=== PATIENT | female | born 1940 | race Two or more races ===

== ENCOUNTER 2016-10-09 13:39 | Outpatient (CLI) | payer MEDICARE, MEDICAID ==
--- NOTE | 2016-10-09 16:44 | XRAY Report ---
TWO-VIEW CHEST: 10/09/2016 CLINICAL INDICATION: Left chest pain. COMPARISON: 12/12/2015 FINDINGS: Frontal and lateral views of the chest demonstrate a normal cardiac silhouette. The lungs are clear. No effusion or pneumothorax is present. IMPRESSION: NO EVIDENCE OF ACUTE CARDIOPULMONARY DISEASE. JOB #: [id number] EXT JOB #:[id number]
== END 2016-10-09 13:40 | disposition home or self-care (01) ==
LOC: DI.N 13:39
PROVIDERS: ATTEND Family Medicine
DX: R07.81 Pleurodynia (principal)
CPT/HCPCS: 71020

== ENCOUNTER 2017-01-06 14:43 | Outpatient (CLI) | payer MEDICARE, MEDICAID ==
[2017-01-06 19:35] LABS: CALCIUM 9.1 mg/dL (8.5-10.3); CREATININE 0.8 mg/dL (0.4-1.0); POTASSIUM 3.9 mmol/L (3.5-5.0)
== END 2017-01-06 14:44 ==
LOC: LAB.N 14:43
PROVIDERS: ATTEND Family Medicine
DX: I10 Essential (primary) hypertension (principal)
CPT/HCPCS: 36415; 80048

== ENCOUNTER 2017-05-08 10:46 | Emergency (ER) | payer MEDICARE, MEDICAID ==
--- NOTE | 2017-05-08 12:33 | XRAY Preliminary Report ---
Exam: XR CHEST 2 VIEW PA/LAT IMPRESSION: Unremarkable chest for age and body size, stable. No pneumonia, CHF or other demonstrated cause for cough. [facility] SITE ID: [id number]
--- NOTE | 2017-05-08 12:36 | XRAY Report ---
EXAM: CHEST RADIOGRAPHY, 2 VIEWS EXAM DATE: 05/08/2017 11:54 AM. CLINICAL HISTORY: Cough in a 76-year-old female. COMPARISON: 10/09/2016 and previous. TECHNIQUE: Upright PA and lateral views. FINDINGS: Lungs/Pleura: No focal opacities evident. No pleural effusion. No pneumothorax. Normal volumes. Mediastinum: Heart and mediastinal contours are unremarkable. No pulmonary vascular congestion or macho nopathy. Other: Trachea and osseous structures are unremarkable. IMPRESSION: Unremarkable chest for age and body size, stable. No pneumonia, CHF or other demonstrated cause for cough. [facility] Referring Provider Line: [phone] SITE ID: [id number]
[2017-05-08] MEDS ORDERED: DEXAMETHASONE 10 MG/ML VIAL PO STA (13:18)
--- NOTE | 2017-05-08 13:20 | ED Physician Documentation ---
PD HPI URI - Stated complaint Stated Complaint: THROAT PX - Chief complaint Chief Complaint: Resp - History obtained from History obtained from: Patient, Family - History of Present Illness Timing - onset: How many weeks ago (2) Timing duration: Weeks (2) Timing details: Gradual onset, Still present Associated symptoms: Nasal congestion, Rhinorrhea, Sore throat, Productive cough , Dyspnea Contributing factors: Sick contact Improves by: Rest, Medication, MDI/nebulizer Worsened by: Activity, Breathing Similar symptoms before: Diagnosis (asthma and bronchitis) Recently seen: Not recently seen - Additional information Additional information: 68-year-old female with a history of COPD and yearly exacerbations has developed a cough and congestion sore throat loss of voice and production of brown phlegm. She last took a course of prednisone about 1 year ago. She is using a nebulizer at home and use this nebulizer last night and is not currently short of breath. On a good day she does not use her nebulizer at all and she uses an inhaler twice per day. 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 HEENT: Cataracts - Present Medications Home Medications: Ambulatory Orders Medication Instructions Recorded Confirmed Acetaminophen [Tylenol Extra 500 mg PO PRN 02/15/13 02/15/13 Strength] Calcitonin,[place],Synthetic 1 ml NS DAILY 02/15/13 02/15/13 [Calcitonin-[place]] Calcium Carbonate [Calcium] 600 mg PO DAILY 02/15/13 02/15/13 Losartan Potassium [Cozaar] 50 mg PO DAILY 02/15/13 02/15/13 Pravastatin Sodium 20 mg PO DAILY 02/15/13 02/15/13 Albuterol 2.5 mg INH Q4H PRN #30 neb 06/19/15 raNITIdine [Zantac] 12/12/15 Azithromycin [Zithromax] 250 mg PO DAILY #6 tablet 05/08/17 Benzonatate [Tessalon] 100 - 200 mg PO TID PRN #20 capsule 05/08/17 Fluticasone 44 Mcg [Flovent] 1 puffs INH BID 05/08/17 05/08/17 predniSONE [Deltasone] 10 mg PO DAILY #26 tablet 05/08/17 - Allergies Allergies/Adverse Reactions: Allergies Allergy/AdvReac Type Severity Reaction Status Date / Time calcium [Calcium] Allergy Unknown Edema Verified 05/08/17 10:57 Penicillins Allergy Unknown Respiratory Verified 05/08/17 10:57 lisinopril AdvReac Unknown Respiratory Verified 05/08/17 10:57 amenophyllina Allergy Unknown Uncoded 05/08/17 10:57 - Social History Does the pt smoke?: No Smoking Status: Never smoker Does the pt drink ETOH?: No Does the pt have substance abuse?: No - Immunizations Immunizations are current?: No Immunizations: TDAP >10years/unknown - POLST Patient has POLST: No PD ED PE NORMAL - Vitals Vital signs reviewed: Yes (hypertensive) - General General: Alert and oriented X 3, No acute distress, Well developed/nourished - HEENT HEENT: Atraumatic, PERRL, EOMI, Other (rim of inflamation to the left TM the right is clear. The pharynx is inflamed with swelling and exudate mild ) - Neck Neck: Supple, no meningeal sign, No bony TTP - Cardiac Cardiac: RRR, No murmur - Respiratory Respiratory: No respiratory distress, Clear bilaterally - Abdomen Abdomen: Soft, Non tender - Back Back: No CVA TTP, No spinal TTP - Derm Derm: Normal color, Warm and dry, No rash - Extremities Extremities: No deformity, No edema - Neuro Neuro: No motor deficit, No sensory deficit Eye Opening: Spontaneous Motor: Obeys Commands Verbal: Oriented GCS Score: 15 - Psych Psych: Normal mood, Normal affect Results - Vitals Vitals: Vital Signs - 24 hr 05/08/17 05/08/17 10:54 13:28 Temperature 36.4 C L Heart Rate 74 75 Respiratory 20 18 Rate Blood Pressure 146/66 H 158/65 H O2 Saturation 97 97 Oxygen O2 Source Room air - Labs Labs: Laboratory Tests 05/08/17 13:10 Group A Strep Rapid Negative - Rads (name of study) 2 veiw chest Radiology: Prelim report reviewed (Impression: Unremarkable chest for age and body size, stable. No pneumonia, CHF or other demonstrate a cause for cough.), EMP read indepedently, See rad report PD MEDICAL DECISION MAKING - ED course Complexity details: reviewed old records, reviewed results, re-evaluated patient , considered differential, d/w patient, d/w family ED course: 76-year-old female with history of COPD has another exacerbation this year she is coughing up some brown phlegm. Chest x-ray is clear she is given dexamethasone 10 mg here in the emergency department and we will place her on a course of prednisone and azithromycin. Departure - Departure Disposition: Home, Self Care Clinical Impression: Asthmatic bronchitis with acute exacerbation Qualifiers: Asthma severity: mild Asthma persistence: intermittent Qualified Code(s): J45.21 - Mild intermittent asthma with (acute) exacerbation Condition: Stable Instructions: ED Bronchitis Asthmatic Follow-Up: Jeremy Maya MD [Primary Care Provider] - Prescriptions: Azithromycin [Zithromax] 250 mg PO DAILY #6 tablet Benzonatate [Tessalon] 100 - 200 mg PO TID PRN #20 capsule PRN Reason: Cough predniSONE [Deltasone] 10 mg PO DAILY #26 tablet
[2017-05-08 13:26] LABS: RAPID STREP SCREEN REAGENT QC YELLOW (YELLOW)
[2017-05-08 13:30] VITALS: BP 158/65
[2017-05-08] MEDS ORDERED: CHERRY SYRUP 10 ML UDC PO ONE (13:30)
[2017-05-08] MEDS ORDERED: DEXAMETHASONE 10 MG/ML VIAL ONE (13:30)
== END 2017-05-08 13:45 | disposition home or self-care (01) ==
LOC: ED 10:46
DX: J45.21 Mild intermittent asthma with (acute) exacerbation (principal); J44.9 Chronic obstructive pulmonary disease, unspecified; I10 Essential (primary) hypertension; E78.00 Pure hypercholesterolemia, unspecified; K21.9 Gastro-esophageal reflux disease without esophagitis; M19.90 Unspecified osteoarthritis, unspecified site
CPT/HCPCS: 71020; 87070; 87430; 99283; A9270

== ENCOUNTER 2017-07-12 22:14 | Outpatient (CLI) | payer MEDICARE, MEDICAID | END 2017-07-12 22:15 | disposition EMS.NT | LOC: EMS 22:14 | PROVIDERS: ATTEND Surgery | DX: R06.00 Dyspnea, unspecified (principal); R05 Cough ==

== ENCOUNTER 2017-08-01 16:33 | Emergency (ER) | payer MEDICARE, MEDICAID ==
[2017-08-01] MEDS ORDERED: KETOROLAC 60 MG/2 ML VIAL IVP STA (18:17)
--- NOTE | 2017-08-01 18:17 | ED Physician Documentation ---
History of Present Illness - Stated complaint Stated Complaint: BUTTOCK PX - Chief complaint Chief Complaint: General - History obtained from History obtained from: Patient, Family - History of Present Illness Timing: Today Pain level max: 8 Pain level now: 8 Quality: sharp, shooting pain Improved by: nothing Worsened by: standing, sitting - Additonal information Additional information: Patient is a 76-year-old female who presents to the emergency department with bilateral pain that radiates from the buttocks down the posterior aspect of both legs. Has had similar episodes in the past with her sciatica. Took an old dose of methocarbamol, but did not relieve her pain. no numbness, tingling, loss of bowel or bladder function. no trauma. no fevers. Review of Systems Constitutional: denies: Fever, Chills Nose: denies: Rhinorrhea / runny nose, Congestion Throat: denies: Sore throat Respiratory: denies: Cough GI: denies: Abdominal Pain, Vomiting, Diarrhea Skin: denies: Rash Musculoskeletal: denies: Neck pain, Back pain Neurologic: denies: Focal weakness, Numbness, Headache 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, 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 HEENT: Cataracts - Present Medications Home Medications: Ambulatory Orders Medication Instructions Recorded Confirmed Acetaminophen [Tylenol Extra 500 mg PO DAILY 02/15/13 08/01/17 Strength] Calcium Carbonate [Calcium] 600 mg PO DAILY 02/15/13 08/01/17 Losartan Potassium [Cozaar] 50 mg PO DAILY 02/15/13 08/01/17 Pravastatin Sodium 20 mg PO DAILY 02/15/13 08/01/17 Albuterol 2.5 mg INH Q4H PRN #30 neb 06/19/15 08/01/17 raNITIdine [Zantac] 75 mg PO DAILY 12/12/15 08/01/17 Fluticasone 44 Mcg [Flovent] 1 puffs INH BID 05/08/17 08/01/17 Meloxicam [Mobic] 7.5 mg PO BID PRN #20 tablet 08/01/17 - Allergies Allergies/Adverse Reactions: Allergies Allergy/AdvReac Type Severity Reaction Status Date / Time calcium [Calcium] Allergy Unknown Edema Verified 08/01/17 17:41 Penicillins Allergy Unknown Respiratory Verified 08/01/17 17:41 lisinopril AdvReac Unknown Respiratory Verified 08/01/17 17:41 amenophyllina Allergy Unknown Uncoded 08/01/17 16:44 - Social History Does the pt smoke?: No Smoking Status: Never smoker Does the pt drink ETOH?: No Does the pt have substance abuse?: No - Immunizations Immunizations are current?: No Immunizations: TDAP >10years/unknown - POLST Patient has POLST: No PD ED PE NORMAL - Vitals Vital signs reviewed: Yes - General General: Alert and oriented X 3, No acute distress - HEENT HEENT: Moist mucous membranes - Neck Neck: Supple, no meningeal sign - Cardiac Cardiac: RRR, Strong equal pulses - Respiratory Respiratory: No respiratory distress, Clear bilaterally - Abdomen Abdomen: Soft, Non tender, Non distended - Back Back: No spinal TTP, Other (no step off, no deformity. No midline tenderness to palpation or percussion. There is sensitivity and discomfort when palpating over the bilateral sacroiliac joints.) - Derm Derm: Warm and dry - Extremities Extremities: Normal ROM s pain, Other (normal bilateral lower extremity patellar and ankle jerk reflexes. Normal great toe extension bilaterally. Normal gait) - Neuro Neuro: Alert and oriented X 3, No motor deficit, No sensory deficit - Psych Psych: Normal mood, Normal affect Results - Vitals Vitals: Vital Signs - 24 hr 08/01/17 19:04 Temperature 36.7 C Heart Rate 89 Respiratory 20 Rate Blood Pressure 162/72 H O2 Saturation 98 Oxygen O2 Source Room air PD MEDICAL DECISION MAKING - ED course Complexity details: considered differential (no cauda equina, no spinal epidural abscess, no fracture, no aortic dissection or evidence of aneursym rupture), d/w patient, d/w family ED course: Patient is a 76-year-old female who presents to the emergency department with what sounds like sciatica. No evidence of cauda equina, epidural abscess. No evidence of fracture. Ambulating quite well. Will trial on meloxicam for home and follow-up closely with her doctor. Patient and family counseled regarding signs and symptoms for which I believe and urgent re-evaluation would be necessary. Patient with good understanding of and agreement to plan and is comfortable going home at this time This document was made in part using voice recognition software. While efforts are made to proofread this document, sound alike and grammatical errors may occur. Departure - Departure Disposition: 01 Home, Self Care Clinical Impression: Sciatica Qualifiers: Laterality: bilateral Qualified Code(s): M54.31 - Sciatica, right side Condition: Good Instructions: ED Sciatica Follow-Up: Jeremy Maya MD [Primary Care Provider] - Within 1 week Prescriptions: Meloxicam [Mobic] 7.5 mg PO BID PRN #20 tablet PRN Reason: Pain Comments: Return if you worsen. This should improve over the next 2-3 days. Discharge Date/Time: 08/01/17 19:04
[2017-08-01 19:04] VITALS: BP 162/72
== END 2017-08-01 19:04 | disposition home or self-care (01) ==
LOC: ED 16:33
DX: M54.31 Sciatica, right side (principal); M54.32 Sciatica, left side; I10 Essential (primary) hypertension; E78.00 Pure hypercholesterolemia, unspecified
CPT/HCPCS: 96374; 99283

== ENCOUNTER 2017-08-05 14:43 | Outpatient (CLI) | payer MEDICARE, MEDICAID ==
--- NOTE | 2017-08-06 10:50 | XRAY Report ---
TWO VIEW CHEST: 08/05/2017 CLINICAL INDICATION: Persistent cough. FINDINGS: Frontal and lateral views of the chest are compared to previous films of 05/08/2017. The cardiac silhouette is within normal limits. The lungs are clear. No effusion or pneumothorax is present. IMPRESSION: NORMAL CHEST. TD: 08/06/2017 10:49
== END 2017-08-05 14:44 | disposition home or self-care (01) ==
LOC: DI 14:43
PROVIDERS: ATTEND Family Medicine
DX: R05 Cough (principal)
CPT/HCPCS: 71046

== ENCOUNTER 2018-02-14 11:29 | Emergency (ER) | payer MEDICARE, MEDICAID ==
--- NOTE | 2018-02-14 14:01 | XRAY Report ---
Reason: shoulder inj Procedure Date: 02/14/2018 Accession Number: [id number] / [id number] Procedure: XR - Shoulder 3 View RT CPT Code: FULL RESULT: EXAM: RIGHT SHOULDER RADIOGRAPHY EXAM DATE: 02/14/2018 01:39 PM. CLINICAL HISTORY: Injury. Pain. COMPARISON: HUMERUS RT 05/16/2015 3:39 PM. TECHNIQUE: 3 views. FINDINGS: Bones: Normal. No fracture or bone lesion. Joints: The glenohumeral and acromioclavicular joints are normal. Type II acromion. Normal subacromial space. Soft tissues: The visualized hemithorax is unremarkable. No soft tissue swelling nor calcification. IMPRESSION: Normal shoulder radiography. [facility]
[2018-02-14] MEDS ORDERED: LIDOCAINE PATCH 5% TOP PRN (14:22)
--- NOTE | 2018-02-14 14:27 | ED Physician Documentation ---
History of Present Illness - Stated complaint Stated Complaint: SHOULDER PX - Chief complaint Chief Complaint: Back Pain - Additonal information Additional information: hx from pt 77 female hurt R shoulder lifting boxes about 2 months ago still hurts with ROM no CP SOA cough abd pain leg swelling no numbness or weakness Review of Systems Cardiac: denies: Chest pain / pressure Respiratory: denies: Dyspnea, Cough GI: denies: Abdominal Pain Musculoskeletal: reports: Joint pain Neurologic: denies: Focal weakness, Numbness PD PAST MEDICAL HISTORY - Past Medical History Cardiovascular: Hypertension, High cholesterol Respiratory: Asthma Endocrine/Autoimmune: None GI: GERD : None HEENT: None Psych: None Musculoskeletal: Osteoarthritis, Osteoporosis Derm: None - Past Surgical History Past Surgical History: Yes 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, 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, 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 HEENT: Cataracts - Present Medications Home Medications: Ambulatory Orders Medication Instructions Recorded Confirmed Acetaminophen [Tylenol Extra 500 mg PO DAILY 02/15/13 08/01/17 Strength] Calcium Carbonate [Calcium] 600 mg PO DAILY 02/15/13 08/01/17 Losartan Potassium [Cozaar] 50 mg PO DAILY 02/15/13 08/01/17 Pravastatin Sodium 20 mg PO DAILY 02/15/13 08/01/17 Albuterol 2.5 mg INH Q4H PRN #30 neb 06/19/15 08/01/17 raNITIdine [Zantac] 75 mg PO DAILY 12/12/15 08/01/17 Fluticasone 44 Mcg [Flovent] 1 puffs INH BID 05/08/17 08/01/17 Meloxicam [Mobic] 7.5 mg PO BID PRN #20 tablet 08/01/17 Cyclobenzaprine [Flexeril] 10 mg PO TID PRN #20 tablet 02/14/18 Lidocaine Patch 5% [Lidoderm Patch] 1 each TOP DAILY PRN #10 patch 02/14/18 - Allergies Allergies/Adverse Reactions: Allergies Allergy/AdvReac Type Severity Reaction Status Date / Time calcium [Calcium] Allergy Unknown Edema Verified 02/14/18 12:00 Penicillins Allergy Unknown Respiratory Verified 02/14/18 12:00 lisinopril AdvReac Unknown Respiratory Verified 02/14/18 12:00 amenophyllina Allergy Unknown Uncoded 02/14/18 12:00 - Social History Does the pt smoke?: No Smoking Status: Never smoker Does the pt drink ETOH?: No Does the pt have substance abuse?: No - Immunizations Immunizations are current?: No Immunizations: TDAP >10years/unknown - POLST Patient has POLST: No PD ED PE NORMAL - Vitals Vital signs reviewed: Yes - Neck Neck: No bony TTP - Cardiac Cardiac: RRR - Respiratory Respiratory: No respiratory distress, Clear bilaterally - Abdomen Abdomen: Soft, Non tender - Derm Derm: Normal color - Extremities Extremities: Other (R shoulder s redness warmth swelling pain with ext and ABD not int ext rot, elbow wrist NT, MSV intact) Results - Vitals Vitals: Vital Signs - 24 hr 02/14/18 11:51 Temperature 36.5 C Heart Rate 78 Respiratory 16 Rate Blood Pressure 135/61 H O2 Saturation 97 Oxygen O2 Source Room air - Rads (name of study) shoulder Radiology: See rad report (neg) PD MEDICAL DECISION MAKING - Sepsis Event Vital Signs: Vital Signs - 24 hr 02/14/18 11:51 Temperature 36.5 C Heart Rate 78 Respiratory 16 Rate Blood Pressure 135/61 H O2 Saturation 97 Oxygen O2 Source Room air Departure - Departure Disposition: 01 Home, Self Care Clinical Impression: Shoulder sprain Qualifiers: Encounter type: initial encounter Shoulder sprain type: unspecified sprain Laterality: right Qualified Code(s): S43.401A - Unspecified sprain of right shoulder joint, initial encounter Condition: Good Instructions: ED Sprain Shoulder Follow-Up: Jeremy Maya MD [Primary Care Provider] - (for a recheck and referral to PT and orthopedics if not better ) Prescriptions: Cyclobenzaprine [Flexeril] 10 mg PO TID PRN #20 tablet PRN Reason: Spasms Lidocaine Patch 5% [Lidoderm Patch] 1 each TOP DAILY PRN #10 patch PRN Reason: Pain Comments: The xrays do not show any fractures Based on your exam it sounds like a sprained shoulder Recommend you have your PMD refer you to physical therapy. Use the lidocaine patches during the day (may wear up to 12 hr a day) And take the muscle relaxant at night because it may make you drowsy Also may take tylenol and apply ice for up to 20 minutes at a time
[2018-02-14 15:35] VITALS: BP 128/64
== END 2018-02-14 14:40 | disposition home or self-care (01) ==
LOC: ED 11:29
DX: S43.401A Unspecified sprain of right shoulder joint, initial encounter (principal); X50.0XXA Overexertion from strenuous movement or load, initial encounter; I10 Essential (primary) hypertension
CPT/HCPCS: 73030; 99283; A9270

== ENCOUNTER 2018-04-20 08:00 | Outpatient (CLI) | payer MEDICARE, MEDICAID ==
[2018-04-20 18:52] LABS: BILIRUBIN,URINE NEGATIVE (NEGATIVE); GLUCOSE, URINE (UA) NEGATIVE (NEGATIVE); KETONES,URINE (UA) NEGATIVE (NEGATIVE); LEUKOCYTE ESTERASE, URINE NEGATIVE (NEGATIVE); NITRITE,URINE NEGATIVE (NEGATIVE); OCCULT BLOOD,URINE TRACE-INTA (NEGATIVE); PROTEIN,URINE NEGATIVE (NEGATIVE); UROBILINOGEN,URINE 0.2 (NORMAL) E.U./dL (NORMAL)
[2018-04-20 19:04] LABS: BACTERIA,URINE None Seen /HPF (None Seen); CLARITY,URINE CLEAR (CLEAR); RBC,URINE 0-5 /HPF (0-5); SQUAMOUS EPITHELIAL CELL,UR FEW Squamous (<= Few)
== END 2018-04-20 08:01 | disposition home or self-care (01) ==
LOC: LAB.R 08:00
PROVIDERS: ATTEND Family Medicine
DX: R31.9 Hematuria, unspecified (principal); R10.9 Unspecified abdominal pain
CPT/HCPCS: 81001; 87086

== ENCOUNTER 2018-07-22 14:28 | Outpatient (CLI) | payer MEDICARE, MEDICAID ==
--- NOTE | 2018-07-22 18:32 | MRI Report ---
Reason: BONE DISORDER,SHOULD JOINT PAIN,RIGHT,ROTATOR CUFF Procedure Date: 07/22/2018 Accession Number: [id number] / [id number] Procedure: MRI - Shoulder RT W/O CPT Code: FULL RESULT: EXAM: RIGHT SHOULDER MRI WITHOUT CONTRAST EXAM DATE: 07/22/2018 04:07 PM. CLINICAL HISTORY: BONE DISORDER,SHOULD JOINT PAIN,RIGHT,ROTATOR CUFF. COMPARISON: RIGHT SHOULDER MRI 06/28/2008 10:03 AM. TECHNIQUE: Multiplanar, multisequence T1-weighted and fluid-sensitive sequences of the shoulder without contrast. Other: None. FINDINGS: Acromioclavicular Region: The acromion is type I. Mild acromioclavicular osteoarthritis. The coracoacromial and coracoclavicular ligaments are intact. Fluid in the subacromial/subdeltoid bursa reflects joint fluid traversing the full-thickness rotator cuff tear which will be discussed below. Glenohumeral Region: No subluxation. There is a small glenohumeral joint effusion. No capsular thickening or tear. No articular body. The articular cartilage is unremarkable. Bone Marrow: No fracture, marrow edema or bone lesions. Labrum: The labrum is unremarkable on this nonarthrographic study. Musculature/Rotator Cuff: There is diffuse increased signal in the mid to distal supraspinatus tendon consistent with a combination of tendinosis and partial-thickness tear; however, there is a more focal defect in the tendon involving the central fibers of the tendon in the AP dimension at a level approximately 5 mm medial to the greater tuberosity insertion consistent with a focal tear, probably full-thickness. No complete retracted tear is present. No supraspinatus muscle belly atrophy. This tear is new since the prior study. Fluid extends along the fibers of the mid to distal infraspinatus tendon consistent with partial thickness articular surface tear. No full-thickness infraspinatus tear. No infraspinatus muscle belly atrophy. This is new since the prior study. Partial-thickness articular surface tear of the mid to distal and superior subscapularis. No full-thickness subscapularis tear. The subscapularis muscle belly is mildly atrophic. The teres minor is normal. Biceps Tendon: The long head biceps tendon is avulsed from the biceps anchor and retracted distally beyond the inferior field of view. Other: The subcutaneous tissues are unremarkable. IMPRESSION: 1. High-grade and probably full-thickness tear of the distal supraspinatus involving the central fibers of the tendon slightly medial to the greater tuberosity insertion with diffuse superimposed tendinosis of the supraspinatus elsewhere. 2. Partial-thickness articular surface tear of the mid to distal infraspinatus. No full-thickness infraspinatus tear. 3. Partial-thickness articular surface tear of the mid to distal and superior subscapularis. The subscapularis muscle belly is mildly atrophic. 4. Avulsion of the long head biceps tendon from the biceps anchor with distal retraction beyond the inferior field of view. [facility] MUSCULOSKELETAL RADIOLOGY SECTION
--- NOTE | 2018-07-25 08:41 | DEXA Report ---
Reason: BONE DISORDER,SHOULD JOINT PAIN,RIGHT,ROTATOR CUFF Procedure Date: 07/22/2018 Accession Number: [id number] / [id number] Procedure: DEX - Dexa Spine and/or Hip CPT Code: FULL RESULT: EXAM: Dexa Spine and/or Hip DATE: 07/22/2018 4:46 PM CLINICAL HISTORY: BONE DISORDER,SHOULD JOINT PAIN,RIGHT,ROTATOR CUFF TECHNIQUE: Dual energy x-ray absorptiometry (DXA) was performed on a Buz System. Regions measured are the AP Spine, femoral neck, and if needed forearm. COMPARISON: None. In accordance with the International Society for Clinical Densitometry (ISCD) guidelines, data from previous exams may be reanalyzed using current recommendations and techniques. This is done to allow a more accurate basis for comparison with the current study. FINDINGS: The data for the lumbar spine is as follows: BMD (g/cm/cm) T-SCORE Z-SCORE REGION L1 0.860 -2.3 -0.3 L2 0.887 -2.6 -0.6 L3 0.864 -2.8 -0.8 L4 0.860 -2.8 -0.9 TOTAL 0.868 -2.6 -0.6 NOTE: All evaluable vertebrae are used for classification The data for the hip is as follows: BMD (g/cm/cm) T-SCORE Z-SCORE REGION Neck 0.716 -2.3 -0.1 TOTAL 0.769 -1.9 0.2 NOTE: The femoral neck or total proximal femur, whichever is lowest, is used for classification. IMPRESSION: THE WHO CLASSIFICATION BASED ON THE INTERNATIONAL REFERENCE STANDARD IS OSTEOPOROSIS. THE FRACTURE RISK IS HIGH. RECOMMENDATION: Patients with diagnosis of osteoporosis or osteopenia should have regular bone mineral density assessment. For those eligible for Medicare, routine testing is allowed once every 2 years. Testing frequency can be increased for patients who have rapidly progressing disease or for those who are receiving medical therapy to restore bone mass. COMMENT: World Health Organization (WHO) definitions for osteoporosis and osteopenia: NORMAL BMD: T-score at -1.0 or higher, fracture risk is low OSTEOPENIA BMD: T-score between -1.0 and -2.5, fracture risk is increased. OSTEOPOROSIS BMD: T-score at -2.5 or lower, fracture risk is high. National Osteoporosis Foundation recommends: 1. Obtain adequate dietary calcium (at least 1200 mg per day) and vitamin D (400-800 international units per day). 2. Participate, as appropriate, in regular weightbearing and muscle-strengthening exercise. 3. Avoid tobacco use and reduce alcohol and caffeine intake. 4. For more detailed information see the website at www.NOF.org.
== END 2018-07-22 14:29 | disposition home or self-care (01) ==
LOC: DI 14:28
PROVIDERS: ATTEND Nurse Practitioner
DX: M81.0 Age-related osteoporosis without current pathological fracture (principal); M75.100 Unspecified rotator cuff tear or rupture of unspecified shoulder, not specified as traumatic; S46.191A Other injury of muscle, fascia and tendon of long head of biceps, right arm, initial encounter
CPT/HCPCS: 77080

== ENCOUNTER 2018-07-29 16:06 | Outpatient (CLI) | payer MEDICARE, MEDICAID | END 2018-07-29 23:59 | disposition home or self-care (01) | LOC: RT.N 16:06 | PROVIDERS: ATTEND Nurse Practitioner | DX: R06.09 Other forms of dyspnea (principal); M81.0 Age-related osteoporosis without current pathological fracture | CPT/HCPCS: 93005 ==

== ENCOUNTER 2018-09-11 17:08 | Emergency (ER) | payer MEDICARE, MEDICAID ==
[2018-09-11] MEDS ORDERED: HYDROcod/ACETAM 5/325 MG TABLET PO STA (17:33)
--- NOTE | 2018-09-11 17:35 | ED Physician Documentation ---
History of Present Illness - Stated complaint Stated Complaint: RT HIP PX - Chief complaint Chief Complaint: Ext Problem - History obtained from History obtained from: Patient - History of Present Illness Timing: Other (She has had worsening right hip pain for the last week. She points at the right low back as the site of pain at the hip so much. She is also had some migratory lower abdominal pains, both left and right lower quadrants over the same timeframe without nausea, vomiting, fevers, or saddle anesthesia. She has no urinary complaints. 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 HEENT: Cataracts - Present Medications Home Medications: Ambulatory Orders Medication Instructions Recorded Confirmed Acetaminophen [Tylenol Extra 500 mg PO DAILY 02/15/13 08/01/17 Strength] Calcium Carbonate [Calcium] 600 mg PO DAILY 02/15/13 08/01/17 Losartan Potassium [Cozaar] 50 mg PO DAILY 02/15/13 08/01/17 Pravastatin Sodium 20 mg PO DAILY 02/15/13 08/01/17 Albuterol 2.5 mg INH Q4H PRN #30 neb 06/19/15 08/01/17 raNITIdine [Zantac] 75 mg PO DAILY 12/12/15 08/01/17 Fluticasone 44 Mcg [Flovent] 1 puffs INH BID 05/08/17 08/01/17 Meloxicam [Mobic] 7.5 mg PO BID PRN #20 tablet 08/01/17 Cyclobenzaprine [Flexeril] 10 mg PO TID PRN #20 tablet 02/14/18 Lidocaine Patch 5% [Lidoderm Patch] 1 each TOP DAILY PRN #10 patch 02/14/18 Ciprofloxacin HCl [Cipro] 500 mg PO BID #14 tablet 09/11/18 - Allergies Allergies/Adverse Reactions: Allergies Allergy/AdvReac Type Severity Reaction Status Date / Time calcium [Calcium] Allergy Unknown Edema Verified 09/11/18 17:18 Penicillins Allergy Unknown Respiratory Verified 09/11/18 17:18 lisinopril AdvReac Unknown Respiratory Verified 09/11/18 17:18 amenophyllina Allergy Unknown Uncoded 09/11/18 17:18 - Social History Does the pt smoke?: No Smoking Status: Never smoker Does the pt drink ETOH?: No Does the pt have substance abuse?: No - Immunizations Immunizations are current?: No Immunizations: TDAP >10years/unknown - POLST Patient has POLST: No PD ED PE NORMAL - Vitals Vital signs reviewed: Yes - General General: Alert and oriented X 3, No acute distress - Abdomen Abdomen: Normal bowel sounds, Soft, Non tender - Back Back: No spinal TTP, Other (The patient has equal and normal Achilles and patellar reflexes bilaterally. Normal sensation in all areas of the legs. Patient denies saddle anesthesia. Normal strength in flexion-extension at the ankles, knees, and flexion of the hips.) - Neuro Neuro: Alert and oriented X 3, Normal speech Results - Vitals Vitals: Vital Signs - 24 hr 09/11/18 09/11/18 17:14 19:19 Temperature 36.1 C L 36.2 C L Heart Rate 73 64 Respiratory 16 16 Rate Blood Pressure 169/53 H 160/62 H O2 Saturation 97 99 Oxygen O2 Source Room air - Labs Labs: Laboratory Tests 09/11/18 09/11/18 09/11/18 17:45 17:50 17:50 WBC 7.4 RBC 4.28 Hgb 12.9 Hct 39.8 MCV 93.1 MCH 30.2 MCHC 32.5 RDW 13.0 Plt Count 288 MPV 6.9 L Neut # (Auto) 3.8 Lymph # (Auto) 2.8 [place] # (Auto) 0.6 Eos # (Auto) 0.2 Baso # (Auto) 0.1 Absolute Nucleated RBC 0.00 Nucleated RBC % 0.0 Sodium 141 Potassium 3.3 L Chloride 105 Carbon Dioxide 29 Anion Gap 7.0 BUN 16 Creatinine 0.7 Estimated GFR (MDRD) 81 L Glucose 121 H Calcium 9.0 Total Bilirubin 0.4 AST 30 ALT 35 Alkaline Phosphatase 83 Total Protein 8.0 Albumin 4.3 Globulin 3.7 Albumin/Globulin Ratio 1.2 Lipase 58 H Urine Color YELLOW Urine Clarity CLEAR Urine pH 6.5 Ur Specific [place] <=1.005 Urine Protein NEGATIVE Urine Glucose (UA) NEGATIVE Urine Ketones NEGATIVE Urine Occult Blood NEGATIVE Urine Nitrite NEGATIVE Urine Bilirubin NEGATIVE Urine Urobilinogen 0.2 (NORMAL) Ur Leukocyte Esterase TRACE H Urine RBC None Seen Urine WBC 0-3 Ur Squamous Epith Cells RARE Squamous Urine Bacteria None Seen Ur Microscopic Review INDICATED Urine Culture Comments INDICATED - Rads (name of study) CT A/P Radiology: EMP read contemporaneously (Diverticulosis and cholelithiasis) PD MEDICAL DECISION MAKING - ED course ED course: 77-year-old woman presents with acute right "hip" pain but really points at the right back. Her examination is benign, given the advanced age workup was done and demonstrates mild evidence of UTI. He also incidental cholelithiasis and diverticulosis which were shared with patient. She was put on ciprofloxacin, noting penicillin allergy and she cannot take sulfa due to an interaction with her blood pressure medication. Departure - Departure Disposition: 01 Home, Self Care Clinical Impression: Pyelonephritis Condition: Good Record reviewed to determine appropriate education?: Yes Instructions: Pyelonephritis Dc Prescriptions: Ciprofloxacin HCl [Cipro] 500 mg PO BID #14 tablet Comments: As discussed you do have gallstones, they should not be bothering you now. Return for new or worsening symptoms. Follow-up with your doctor. We will culture your urine, the results should be done in 48-72 hours. If an antibiotic change is necessary we will call you. Return if worse in the meantime, especially if you develop increasing flank pain, fevers, or cannot keep down the medication.
[2018-09-11] MEDS ORDERED: IOVERSOL 320 100 ML VIAL IVP ONE (17:44)
[2018-09-11 17:55] LABS: BILIRUBIN,URINE NEGATIVE (NEGATIVE); GLUCOSE, URINE (UA) NEGATIVE (NEGATIVE); KETONES,URINE (UA) NEGATIVE (NEGATIVE); LEUKOCYTE ESTERASE, URINE TRACE (NEGATIVE); NITRITE,URINE NEGATIVE (NEGATIVE); OCCULT BLOOD,URINE NEGATIVE (NEGATIVE); PH,URINE 6.5 PH (5.0-7.5); PROTEIN,URINE NEGATIVE (NEGATIVE); UROBILINOGEN,URINE 0.2 (NORMAL) E.U./dL (NORMAL)
[2018-09-11 17:59] LABS: CLARITY,URINE CLEAR (CLEAR)
[2018-09-11 18:06] LABS: BASOPHILS # (AUTO) 0.1 10^3/uL (0.0-0.1); BASOPHILS % (AUTO) 0.7 %; EOSINOPHILS # (AUTO) 0.2 10^3/uL (0.0-0.7); EOSINOPHILS % (AUTO) 2.4 %; HGB - HEMOGLOBIN 12.9 g/dL (12.0-16.0); LYMPHOCYTES # (AUTO) 2.8 10^3/uL (1.5-3.5); LYMPHOCYTES % (AUTO) 37.5 %; MEAN CORPUSCULAR HEMOGLOBIN 30.2 pg (27.0-31.0); MEAN CORPUSCULAR HGB CONC 32.5 g/dL (32.0-36.0); MEAN CORPUSCULAR VOLUME 93.1 fL (81.0-99.0); MEAN PLATELET VOLUME 6.9 fL (7.9-10.8); MONOCYTES # (AUTO) 0.6 10^3/uL (0.0-1.0); MONOCYTES % (AUTO) 7.7 %; NEUTROPHILS # (AUTO) 3.8 10^3/uL (1.5-6.6); NEUTROPHILS % (AUTO) 51.7 %; PLT - PLATELET COUNT 288 10^3/uL (130-450); RED BLOOD COUNT 4.28 10^6/uL (4.20-5.40); WHITE BLOOD COUNT 7.4 x10^3/uL (4.8-10.8)
[2018-09-11 18:09] LABS: BACTERIA,URINE None Seen /HPF (None Seen); RBC,URINE None Seen /HPF (0-5); SQUAMOUS EPITHELIAL CELL,UR RARE Squamous (<= Few)
[2018-09-11 18:14] LABS: ALBUMIN 4.3 g/dL (3.2-5.5); ALBUMIN/GLOBULIN RATIO 1.2 (1.0-2.2); BILIRUBIN,TOTAL 0.4 mg/dL (0.2-1.0); CREATININE 0.7 mg/dL (0.4-1.0)
[2018-09-11 19:24] VITALS: BP 160/62
--- NOTE | 2018-09-11 19:32 | CT Report ---
Reason: IV only, migratory abd pain, R back pain Procedure Date: 09/11/2018 Accession Number: [id number] / [id number] Procedure: CT - Abdomen/Pelvis W CPT Code: FULL RESULT: EXAM: CT ABDOMEN AND PELVIS EXAM DATE: 09/11/2018 06:45 PM. CLINICAL HISTORY: IV only, migratory abd pain, R back pain. COMPARISONS: ABD/PEL 10/12/2006 11:34 AM. TECHNIQUE: Routine helical CT imaging was performed through the abdomen and pelvis. IV contrast: 100 mL Optiray 320. Enteric contrast: No. Reconstructions: Coronal and sagittal. In accordance with CT protocol optimization, one or more of the following dose reduction techniques were utilized for this exam: automated exposure control, adjustment of mA and/or KV based on patient size, or use of iterative reconstructive technique. FINDINGS: Lung Bases: Unremarkable. Liver: Normal. No masses. Gallbladder/Bile Ducts: There are multiple calcified stones in the gallbladder fundus. The gallbladder is contracted. No definite wall thickening. No pericholecystic fluid. Spleen: Normal. Pancreas: Normal. Adrenal Glands: Normal. Kidneys: No hydronephrosis or nephrolithiasis. Small cortical hypodensities in the left kidney likely represent cysts, although are too small to accurately characterize. Peritoneal Cavity/Bowel: Nonobstructive bowel gas pattern. Colonic diverticulosis without evidence of acute diverticulitis. No free air or free fluid. The appendix is well visualized and normal. Pelvic Organs: U-shaped object in the uterus again seen, which was present on the prior exam. The uterus and ovaries are otherwise unremarkable. The urinary bladder is unremarkable. Unchanged metallic foreign body in the left medial gluteal soft tissues. Vasculature: Scattered calcified atherosclerotic plaques in the abdominal aorta without evidence of aneurysm. Bones: The bones are osteopenic. Dextroconvex curvature of the lumbar spine. Mild multilevel degenerative facet arthropathy. No acute fracture or dislocation visualized. Other: None. IMPRESSION: Cholelithiasis without CT evidence of acute cholecystitis. No hydronephrosis or nephrolithiasis. Nonobstructive bowel gas pattern. Normal appendix. Colonic diverticulosis without evidence of acute diverticulitis. RADIA
[2018-09-11] MEDS ORDERED: CIPROFLOXACIN 250 MG TABLET PO STA (19:37)
[2018-09-11] MEDS ORDERED: HYDROcod/ACET 5/325 Prepack 4 PO STA (19:37)
== END 2018-09-11 19:55 | disposition home or self-care (01) ==
LOC: ED 17:08
DX: N12 Tubulo-interstitial nephritis, not specified as acute or chronic (principal); K80.20 Calculus of gallbladder without cholecystitis without obstruction; K57.30 Diverticulosis of large intestine without perforation or abscess without bleeding; I10 Essential (primary) hypertension; M81.0 Age-related osteoporosis without current pathological fracture; Z88.0 Allergy status to penicillin
CPT/HCPCS: 36415; 74177; 80053; 81001; 83690; 85025; 87086; 99283; 99284; A9270; Q9967; 81003

== ENCOUNTER 2020-03-22 14:49 | Outpatient (CLI) | payer MEDICARE, MEDICAID ==
--- NOTE | 2020-03-22 16:22 | Ultrasound Report ---
PROCEDURE: Duplex Lwr Ext Arterial Bilat INDICATIONS: BILATERAL LEG PAIN TECHNIQUE: Color and pulse Doppler interrogation was performed of both lower extremity arterial systems, with im age documentation. COMPARISON: None FINDINGS: Right lower extremity: Common femoral artery: 199 cm/sec, with biphasic flow. Deep femoral artery: 75 cm/sec, with biphasic flow. Proximal superficial femoral artery: 103 cm/sec, with biphasic flow. Mid superficial femoral artery: 100 cm/sec, with biphasic flow. Distal superficial femoral artery: 128 cm/sec, with biphasic flow. Popliteal artery: 73 cm/sec, with biphasic flow. Posterior tibial artery: 123 cm/sec, with triphasic flow. Anterior tibial artery/dorsalis pedis: 89/96 cm/sec, with biphasic flow. Joyce-scale imaging description: Extensive bilateral plaques, many of which are at least moderate and in tandem create significant flow limitation. Left lower extremity: Common femoral artery: 158 cm/sec, with biphasic flow. Deep femoral artery: 59 cm/sec, with biphasic flow. Proximal superficial femoral artery: 112 cm/sec, with biphasic flow. Mid superficial femoral artery: 108 cm/sec, with biphasic flow. Distal superficial femoral artery: 94 cm/sec, with biphasic flow. Popliteal artery: 86 cm/sec, with triphasic flow. Posterior tibial artery: 110 cm/sec, with monophasic flow. Anterior tibial artery/dorsalis pedis: 113/128 cm/sec, with monophasic flow. Joyce-scale imaging description: Numerous focal moderate to severe stenoses and overall severe flow-li miting tandem stenosis. IMPRESSION: Numerous bilateral areas of moderate atherosclerotic narrowing of the bilateral arterial circulation. Overall severe flow limitation due to tandem effect of the multiple stenoses. CT angiogram of the ab domen, pelvis, and bilateral lower extremities is recommended, as there is biphasic flow in both comm on femoral artery suggesting inflow disease. Reviewed by: Jayden Garrido MD on 03/22/2020 4:20 PM PDT Approved by: Jayden Garrido MD on 03/22/2020 4:20 PM PDT Station ID: [id number]
== END 2020-03-22 14:50 | disposition home or self-care (01) ==
LOC: DI 14:49
PROVIDERS: ATTEND Physician Assistant
DX: I70.203 Unspecified atherosclerosis of native arteries of extremities, bilateral legs (principal)
CPT/HCPCS: 93925

== ENCOUNTER 2020-04-26 11:46 | Outpatient (CLI) | payer MEDICARE, MEDICAID ==
[2020-04-26 12:21] LABS: CALCIUM 8.6 mg/dL (8.5-10.3); CREATININE 0.7 mg/dL (0.4-1.0)
[2020-04-26] MEDS ORDERED: IOVERSOL 320 100 ML VIAL IVP ONE ×2 (12:51→16:14)
--- NOTE | 2020-04-26 16:20 | CT Report ---
PROCEDURE: CT ANGIOGRAM OF THE ABDOMEN AND PELVIS WITH BILATERAL LOWER EXTREMITY RUN OFF. INDICATIONS: Bilateral claudication CONTRAST: IV CONTRAST: Optiray 320 ml: 125 PO CONTRAST: *NO PO CONTRAST TECHNIQUE: After the administration of intravenous contrast, 2 and 5 mm sections acquired from the diaphragm to the bilateral feet. 3-dimensional maximum intensity projection (MIP) coronal and sagittal reformats, and/or 3-dimensional volume rendering reformatting was then performed. For radiation dose reduction, the following was used: automated exposure control, adjustment of mA and/or kV according to patient size. COMPARISON: Lower extremity arterial ultrasound 03/22/2020 FINDINGS: Image quality: Excellent. Extravascular tissues: Imaged portions of the lung bases are clear. Moderate hepatic steatosis. No fo ivette hepatic mass demonstrated. Multiple gallstones with no gallbladder distention or wall thickening. The pancreas and spleen are within normal limits. No adrenal gland mass. Kidneys unremarkable. No ab normally dilated or obviously thickened loop of bowel. Scattered colonic diverticula. IUD noted. Urin jose bladder unremarkable. No threshold enlarged intra-abdominal, retroperitoneal, pelvic, or inguinal lymph node. Abdominal aorta: Minimal atherosclerotic plaque and calcification in the abdominal aorta with no carol reciable stenosis. Mesenteric and renal arteries are normal without flow-limiting stenosis. Iliac arteries and lower extremity arteries: Widely patent common iliac, external iliac, and internal iliac arteries bilaterally. The common femoral arteries and, superficial femoral arteries, and popli teal arteries are widely patent. There is normal three-vessel runoff below the knee bilaterally. IMPRESSION: Minimal atherosclerotic calcification in the abdominal aorta with no flow-limiting stenosis. No greater than trace atherosclerotic narrowing of the iliac arteries, femoral arteries, with and low er extremity vessels. Abnormal arterial flow velocities and waveforms seen on the comparison ultrasound study were presumab ly artifactual in nature and related to technique. Reviewed by: Jayden Garrido MD on 04/26/2020 4:19 PM PST Approved by: Jayden Garrido MD on 04/26/2020 4:19 PM PST Station ID: [id number]
== END 2020-04-26 11:47 | disposition home or self-care (01) ==
LOC: LAB 11:46
PROVIDERS: ATTEND Physician Assistant
DX: I73.9 Peripheral vascular disease, unspecified (principal); I70.0 Atherosclerosis of aorta
CPT/HCPCS: 36415; 74174; 75635; 80048; Q9967

== ENCOUNTER 2020-07-08 08:00 | Outpatient (CLI) | payer MEDICARE, MEDICAID ==
[2020-07-08 18:05] LABS: BASOPHILS # (AUTO) 0.1 10^3/uL (0.0-0.1); BASOPHILS % (AUTO) 0.7 %; EOSINOPHILS # (AUTO) 0.1 10^3/uL (0.0-0.7); HGB - HEMOGLOBIN 12.8 g/dL (12.0-16.0); LYMPHOCYTES # (AUTO) 2.3 10^3/uL (1.5-3.5); LYMPHOCYTES % (AUTO) 32.1 %; MEAN CORPUSCULAR HGB CONC 31.1 g/dL (32.0-36.0); MEAN CORPUSCULAR VOLUME 96.7 fL (81.0-99.0); MEAN PLATELET VOLUME 9.4 fL (7.9-10.8); MONOCYTES # (AUTO) 0.6 10^3/uL (0.0-1.0); MONOCYTES % (AUTO) 7.9 %; NEUTROPHILS # (AUTO) 4.2 10^3/uL (1.5-6.6); NEUTROPHILS % (AUTO) 57.9 %; PLT - PLATELET COUNT 286 10^3/uL (130-450); RED BLOOD COUNT 4.26 10^6/uL (4.20-5.40); RED CELL DISTRIBUTION WIDTH 12.4 % (12.0-15.0); WHITE BLOOD COUNT 7.2 x10^3/uL (4.8-10.8)
[2020-07-08 18:37] LABS: ALBUMIN 4.3 g/dL (3.2-5.5); ALBUMIN/GLOBULIN RATIO 1.3 (1.0-2.2); BILIRUBIN,TOTAL 0.5 mg/dL (0.2-1.0); CALCIUM 9.3 mg/dL (8.5-10.3); CREATININE 0.7 mg/dL (0.4-1.0); TOTAL PROTEIN 7.5 g/dL (6.7-8.2)
== END 2020-07-08 23:59 | disposition home or self-care (01) ==
LOC: LAB.WCP 08:00
PROVIDERS: ATTEND Nurse Practitioner
DX: R31.9 Hematuria, unspecified (principal)
CPT/HCPCS: 36415; 80053; 85025; 87086

== ENCOUNTER 2020-07-29 08:09 | Outpatient (CLI) | payer MEDICARE, MEDICAID ==
--- NOTE | 2020-07-29 15:51 | CT Report ---
PROCEDURE: Abdomen/Pelvis WO INDICATIONS: HEMATURIA, RT FLANK PAIN TECHNIQUE: Noncontrast 5 mm thick sections acquired from the diaphragms to the symphysis. 5 mm coronal and sagi ttal reformats were then performed. For radiation dose reduction, the following was used: automated exposure control, adjustment of mA and/or kV according to patient size. COMPARISON: CT Angio Renal abdomen and pelvis dated 04/26/2020, CT abdomen and pelvis with contrast dated 09/11/2018. FINDINGS: Image quality: Excellent. ABDOMEN: Lung bases: Lung bases are clear. Heart size is normal. Solid organs: Liver and spleen are normal in size. Gallbladder is again noted to contain multiple g allstones. This includes a gallstone in the gallbladder neck region. There is no gallbladder wall thi ckening or fluid around the gallbladder. Pancreas is normal in contours. No adrenal nodules. Kidne ys are normal in size, without hydronephrosis or nephrolithiasis. Peritoneum and bowel: Unenhanced bowel loops demonstrate normal wall thickness and caliber. No free fluid or air. Diverticulosis without evidence of diverticulitis. Nodes and vessels: No retroperitoneal or mesenteric adenopathy by size criteria. Aorta and inferior vena cava are normal in caliber. Miscellaneous: No ventral hernias. PELVIS: Genitourinary: Bladder wall thickness is normal. Miscellaneous: No inguinal hernias or adenopathy. Intrauterine device again noted. Bones: No suspicious bony lesions. No vertebral body compression fractures. IMPRESSION: 1. Cholelithiasis without evidence of acute cholecystitis. 2. No renal stone, ureteral stone, or hydronephrosis. 3. Normal appendix. 4. Colonic diverticulosis without evidence of diverticulitis. 5. No evidence acute abdominal process. Reviewed by: Cornell Soto MD on 07/29/2020 3:50 PM PST Approved by: Cornell Soto MD on 07/29/2020 3:50 PM PST Station ID: [id number]
== END 2020-07-29 08:10 | disposition home or self-care (01) ==
LOC: DI 08:09
PROVIDERS: ATTEND Nurse Practitioner
DX: K80.20 Calculus of gallbladder without cholecystitis without obstruction (principal); K57.30 Diverticulosis of large intestine without perforation or abscess without bleeding; R31.9 Hematuria, unspecified

== ENCOUNTER 2020-09-30 07:00 | Outpatient (CLI) | payer MEDICARE, MEDICAID ==
--- NOTE | 2020-09-30 12:43 | XRAY Report ---
PROCEDURE: Hand 3 View RT INDICATIONS: R HAND PX TECHNIQUE: 3 views of the hand(s) acquired. COMPARISON: None FINDINGS: Bones: No fractures or dislocations. No suspicious bony lesions. Soft tissues: No suspicious soft tissue calcifications. IMPRESSION: Mild interphalangeal joint space narrowing consistent with osteoarthritic change, most prominently in volving the first inner phalangeal joint. No superimposed trauma. Reviewed by: Maynor Saeed MD on 09/30/2020 12:42 PM PDT Approved by: Maynor Saeed MD on 09/30/2020 12:42 PM PDT Station ID: [id number]
== END 2020-09-30 23:59 | disposition home or self-care (01) ==
LOC: DI.N 07:00
PROVIDERS: ATTEND Nurse Practitioner
DX: M19.041 Primary osteoarthritis, right hand (principal)

== ENCOUNTER 2020-11-18 08:00 | Outpatient (CLI) | payer MEDICARE, MEDICAID ==
[2020-11-18 12:20] LABS: CHOL/HDL RATIO 2.1 (<4.4); CHOLESTEROL 144 mg/dL; HDL CHOLESTEROL 68 mg/dL; LDL CHOLESTEROL,CALCULATED 58 mg/dL; LDL/HDL RATIO 0.9 (<4.4); TRIGLYCERIDES 92 mg/dL; VLDL CHOLESTEROL 18 mg/dL
[2020-11-18 12:27] LABS: THYROID STIMULATING HORMONE 0.87 uIU/mL (0.34-5.60)
[2020-11-18 12:29] LABS: FREE T3 3.7 pg/mL (2.5-3.9); FREE T4 (FREE THYROXINE) 1.03 ng/dL (0.58-1.64)
== END 2020-11-18 23:59 | disposition home or self-care (01) ==
LOC: LAB.WCP 08:00
PROVIDERS: ATTEND Family Medicine
DX: E78.5 Hyperlipidemia, unspecified (principal); Z90.89 Acquired absence of other organs; M81.0 Age-related osteoporosis without current pathological fracture; E55.9 Vitamin D deficiency, unspecified; J45.909 Unspecified asthma, uncomplicated
CPT/HCPCS: 36415; 80061; 83721; 84439; 84443; 84481

== ENCOUNTER 2021-04-01 09:46 | Outpatient (CLI) | payer MEDICARE, MEDICAID ==
--- NOTE | 2021-04-03 02:21 | XRAY Report ---
PROCEDURE: Hip w/Pelvis 1V RT INDICATIONS: R HIP PX TECHNIQUE: AP pelvis with lateral view(s) of the right hip(s). Images became available for review o n 04/02/2021. COMPARISON: None. FINDINGS: Bones: No fractures or dislocations. Pelvic ring appears intact. No suspicious bony lesions. Mini mal to mild bilateral degenerative hip joint space narrowing was minimal paratracheal or osteophytes. No erosions. Soft tissues: The visualized bowel gas pattern is normal. No suspicious soft tissue calcifications. IMPRESSION: Arthritic changes within the hips bilaterally. Reviewed by: Sulema Jackson MD on 04/03/2021 1:40 AM PDT Approved by: Sulema Jackson MD on 04/03/2021 1:40 AM PDT Station ID: [id number]
== END 2021-04-01 09:47 | disposition home or self-care (01) ==
LOC: DI.N 09:46
PROVIDERS: ATTEND Physician Assistant
DX: M16.0 Bilateral primary osteoarthritis of hip (principal)

== ENCOUNTER 2021-05-12 13:00 | Outpatient (CLI) | payer MEDICARE, MEDICAID ==
--- NOTE | 2021-05-12 17:05 | XRAY Report ---
PROCEDURE: Knee 4 View BILAT INDICATIONS: BILATERAL KNEE PAIN TECHNIQUE: 4 views of the right and left knee(s) were acquired. COMPARISON: None. FINDINGS: Bones: No fractures or dislocations. No suspicious bony lesions. Bilateral knee medial compartment osteoarthritis. Mild left knee patellofemoral compartment osteoarthritis. Mild right knee patellofemo ral compartment osteoarthritis. Mild bilateral knee lateral compartment osteophytosis. Soft tissues: No joint effusion. No suspicious soft tissue calcifications. IMPRESSION: Bilateral knee tricompartmental osteoarthritis Reviewed by: Mikaela Stauffer MD, PhD on 05/12/2021 5:04 PM PST Approved by: Mikaela Stauffer MD, PhD on 05/12/2021 5:04 PM PST Station ID: [id number]
== END 2021-05-12 23:59 | disposition home or self-care (01) ==
LOC: DI.N 13:00
PROVIDERS: ATTEND Physician Assistant
DX: M17.0 Bilateral primary osteoarthritis of knee (principal)

== ENCOUNTER 2021-05-12 13:03 | Outpatient (CLI) | payer MEDICARE, MEDICAID | END 2021-05-12 13:04 | disposition home or self-care (01) | LOC: DI.N 13:03 | PROVIDERS: ATTEND Nurse Practitioner | DX: Z53.9 Procedure and treatment not carried out, unspecified reason (principal) ==

== ENCOUNTER 2022-03-25 12:42 | Outpatient (CLI) | payer MEDICARE, MEDICAID ==
--- NOTE | 2022-03-25 14:09 | Ultrasound Report ---
PROCEDURE: Duplex Ext Veins Right INDICATIONS: RIGHT LEG PAIN TECHNIQUE: Real-time imaging, as well as color and pulse Doppler interrogation, were performed of the lower extr emity deep veins from the inguinal ligament to the popliteal fossa. COMPARISON: None. FINDINGS: The deep veins are normally compressible, and free of intraluminal thrombus. Color and pu lse Doppler demonstrate normal phasic intraluminal flow. There is normal augmentation response to di stal compression maneuver. IMPRESSION: No right lower extremity DVT. Reviewed by: Cesar Andrea MD on 03/25/2022 2:08 PM PDT Approved by: Cesar Andrea MD on 03/25/2022 2:08 PM PDT Station ID: [id number]
== END 2022-03-25 12:43 | disposition home or self-care (01) ==
LOC: DI 12:42
PROVIDERS: ATTEND Physician Assistant
DX: M79.604 Pain in right leg (principal)

== ENCOUNTER 2022-03-25 12:46 | Outpatient (CLI) | payer MEDICARE, MEDICAID ==
--- NOTE | 2022-03-25 18:25 | XRAY Report ---
PROCEDURE: Lumbar Spine Complete INDICATIONS: Lumbar Radiculopathy TECHNIQUE: 3 views of the lumbar spine were acquired. COMPARISON: 11/05/2013 FINDINGS: Bones: 5 [id number] vertebrae are present with moderate dextroscoliosis. AP alignment is normal . Superior endplate scalloping of L2 and L3. Mild progression compared to remote prior study. No tristen tebral body compression fractures. No suspicious bony lesions. Soft tissues: Overlying bowel gas pattern is normal. No suspicious soft tissue calcifications. Pro bable gallstones present in the right mid abdomen. Curvilinear metallic device in the pelvis, chronic . IMPRESSION: 1. Slight progression of dextroscoliosis compared to the prior study. 2. Slight progression of superior endplate scalloping of L2-3 without development of significant comp ression fracture. 3. Probable cholelithiasis. Reviewed by: Floridalma Torres MD on 03/25/2022 5:24 PM CATHI Approved by: Floridalma Torres MD on 03/25/2022 5:24 PM AKANTONI Station ID: [id number]
== END 2022-03-25 12:47 | disposition home or self-care (01) ==
LOC: DI 12:46
PROVIDERS: ATTEND Physician Assistant
DX: M41.9 Scoliosis, unspecified (principal); M54.16 Radiculopathy, lumbar region; M79.604 Pain in right leg

== ENCOUNTER 2022-04-21 16:00 | Outpatient (CLI) | payer MEDICARE, MEDICAID ==
--- NOTE | 2022-04-22 12:17 | XRAY Report ---
PROCEDURE: Knee 4 View BILAT INDICATIONS: BILAT KNEE PAIN TECHNIQUE: 4 views of the right and left knee(s) were acquired. COMPARISON: X-ray knees bilateral, 05/12/2021. FINDINGS: Right knee: No fractures or dislocations. There are moderate tricompartmental knee joint degenerati on, most pronounced in the medial femorotibial compartment. Joint spaces is moderately narrowed media lly with weightbearing. Small knee joint effusion. Left knee: No fractures or dislocations. There are severe tricompartmental knee joint degeneration, most pronounced in the medial femorotibial compartment. Joint spaces is severely narrowed medially wi th weightbearing. Moderate knee joint effusion. IMPRESSION: 1. Severe left and moderate right osteoarthritis. 2. Bilateral knee joint effusions. Reviewed by: Stefany Hutchins MD on 04/22/2022 12:16 PM PST Approved by: Stefany Hutchins MD on 04/22/2022 12:16 PM PST Station ID: [id number]
== END 2022-04-21 16:01 | disposition home or self-care (01) ==
LOC: DI.WOS 16:00
PROVIDERS: ATTEND Physician Assistant Surgical
DX: M17.0 Bilateral primary osteoarthritis of knee (principal); M25.461 Effusion, right knee; M25.462 Effusion, left knee

== ENCOUNTER 2023-01-13 15:19 | Emergency (ER) | payer MEDICARE, MEDICAID ==
[2023-01-13 15:27] VITALS: BP 144/54; O2SAT 96
[2023-01-13] MEDS ORDERED: cephALEXin 250 MG CAPSULE PO STA (15:46)
--- NOTE | 2023-01-13 15:50 | ED Physician Documentation ---
History of Present Illness - Stated complaint Stated Complaint: RT ARM PX - Chief complaint Chief Complaint: Ext Problem - History obtained from History obtained from: Patient - Additonal information Additional information: She think she was stung or bitten by a bug on the right elbow sometime this week and has had progressive swelling there. She felt hot 1 night without measured fevers. 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 HEENT: Cataracts - Present Medications Home Medications: Ambulatory Orders Medication Instructions Recorded Confirmed Acetaminophen [Tylenol Extra 500 mg PO DAILY 02/15/13 08/01/17 Strength] Calcium Carbonate [Calcium] 600 mg PO DAILY 02/15/13 08/01/17 Losartan Potassium [Cozaar] 50 mg PO DAILY 02/15/13 08/01/17 Pravastatin Sodium 20 mg PO DAILY 02/15/13 08/01/17 Albuterol 2.5 mg INH Q4H PRN #30 neb 06/19/15 08/01/17 raNITIdine [Zantac] 75 mg PO DAILY 12/12/15 08/01/17 Fluticasone 44 Mcg [Flovent] 1 puffs INH BID 05/08/17 08/01/17 Meloxicam [Mobic] 7.5 mg PO BID PRN #20 tablet 08/01/17 Cyclobenzaprine [Flexeril] 10 mg PO TID PRN #20 tablet 02/14/18 Lidocaine Patch 5% [Lidoderm Patch] 1 each TOP DAILY PRN #10 patch 02/14/18 Ciprofloxacin HCl [Cipro] 500 mg PO BID #14 tablet 09/11/18 Meloxicam [Mobic] 7.5 mg PO BID PRN #20 tablet 01/16/22 cephALEXin [Keflex] 500 mg PO Q6H #28 cap 01/13/23 dilTIAZem HCL [Diltiazem 24Hr ER] 120 mg PO DAILY 01/13/23 01/13/23 predniSONE [Deltasone] 1 tablet PO 0800 01/13/23 01/13/23 - Allergies Allergies/Adverse Reactions: Allergies Allergy/AdvReac Type Severity Reaction Status Date / Time calcium [Calcium] Allergy Unknown Edema Verified 01/13/23 15:27 Penicillins Allergy Unknown Respiratory Verified 01/13/23 15:27 lisinopril AdvReac Unknown Respiratory Verified 01/13/23 15:27 amenophyllina Allergy Unknown Uncoded 01/13/23 15:27 - Social History Does the pt smoke?: No Smoking Status: Never smoker Does the pt drink ETOH?: No Does the pt have substance abuse?: No - Immunizations Immunizations are current?: No Immunizations: TDAP >10years/unknown - POLST Patient has POLST: No PD ED PE NORMAL - Vitals Vital signs reviewed: Yes - General General: Alert and oriented X 3, No acute distress - Derm Derm: Normal color, Warm and dry - Extremities Extremities: Other (On the posterior right elbow distal to the olecranon bursa there is a small pustule which was opened up with a needle during exam and cultured with surrounding cellulitis. Full range of motion.) - Neuro Neuro: Alert and oriented X 3, Normal speech Results - Vitals Vitals: Vital Signs - 24 hr 01/13/23 15:24 Temperature 36 C L Heart Rate 73 Respiratory 16 Rate Blood Pressure 144/54 H O2 Saturation 96 Oxygen O2 Source Room air PD Medical Decision Making - ED course ED course: Cellulitis with a pustule on the right elbow. Not bursitis clinically. It was drained and she is started on Keflex pending cultures. No pain out of proportion to exam or evidence of sepsis. Departure - Departure Disposition: 01 Home, Self Care Clinical Impression: Right arm cellulitis Condition: Good Record reviewed to determine appropriate education?: Yes Instructions: Cellulitis Dc Prescriptions: cephALEXin [Keflex] 500 mg PO Q6H #28 cap Comments: We are performing a wound culture, the results should be done in 48-72 hours. If antibiotic change is necessary we will call you. Return if worse in the meantime, especially if you develop increased pain, fevers, cannot keep down the medication. Otherwise follow-up with your physician in approximately 2-3 days. Discharge Date/Time: 01/13/23 15:56
--- NOTE | 2023-01-15 15:26 | ED Physician Documentation ---
ED Addendum - Addendum Addendum: 01/15/23 15:25 The patient's wound culture came back showing methicillin-resistant Staph aureus. She was prescribed cephalexin. I would presume resistance to that. She is somewhat older at age 82 so would opt for doxycycline over Bactrim or quinolone. I will send a prescription for doxycycline 100 mg twice daily for 5 to 7 days to her preferred pharmacy which is [facility]. Nursing will notify the patient of the new medication.
== END 2023-01-13 15:56 | disposition home or self-care (01) ==
LOC: ED 15:19
DX: L08.9 Local infection of the skin and subcutaneous tissue, unspecified (principal); L03.113 Cellulitis of right upper limb
CPT/HCPCS: 87070; 87205; 99283; A9270; 87181

== ENCOUNTER 2023-01-18 08:00 | Outpatient (CLI) | payer MEDICARE, MEDICAID | END 2023-01-18 23:59 | disposition home or self-care (01) | LOC: LAB.WCP 08:00 | PROVIDERS: ATTEND Physician Assistant Medical | DX: L03.113 Cellulitis of right upper limb (principal) | CPT/HCPCS: 87640 ==

== ENCOUNTER 2023-01-20 07:13 | Outpatient (CLI) | payer MEDICARE, MEDICAID ==
[2023-01-20 12:49] LABS: ALBUMIN 4.1 g/dL (3.2-5.5); ALBUMIN/GLOBULIN RATIO 1.3 (1.0-2.2); ALKALINE PHOSPHATASE 60 IU/L (42-121); ALT ALANINE AMINOTRANSFERASE 18 IU/L (10-60); AST ASPARTATE AMINOTRANSFERASE 16 IU/L (10-42); BILIRUBIN,TOTAL 0.4 mg/dL (0.2-1.0); BUN - BLOOD UREA NITROGEN 16 mg/dL (6-20); CALCIUM 9.8 mg/dL (8.5-10.3); CARBON DIOXIDE - CO2 30 mmol/L (21-32); CHLORIDE 104 mmol/L (101-111); CHOL/HDL RATIO 2.1 (<4.4); CHOLESTEROL 161 mg/dL; CREATININE 0.8 mg/dL (0.6-1.3); GFR - MDRD 68 (>89); GLUCOSE 93 mg/dL (74-104); HDL CHOLESTEROL 75 mg/dL; LDL CHOLESTEROL,CALCULATED 68 mg/dL; LDL/HDL RATIO 0.9 (<4.4); POTASSIUM 4.3 mmol/L (3.5-4.5); SODIUM 139 mmol/L (135-145); TOTAL PROTEIN 7.3 g/dL (6.4-8.9); TRIGLYCERIDES 89 mg/dL (48-352); VLDL CHOLESTEROL 18 mg/dL
[2023-01-20 12:52] LABS: ESTIMATED AVERAGE GLUCOSE 143 mg/dL (70-100); HEMOGLOBIN A1c% 6.6 % (4.27-6.07)
[2023-01-20 13:09] LABS: THYROID STIMULATING HORMONE 1.51 uIU/mL (0.34-5.60)
== END 2023-01-20 07:14 | disposition home or self-care (01) ==
LOC: LAB.N 07:13
PROVIDERS: ATTEND Physician Assistant Medical
DX: I10 Essential (primary) hypertension (principal); M17.0 Bilateral primary osteoarthritis of knee; M48.061 Spinal stenosis, lumbar region without neurogenic claudication; M47.26 Other spondylosis with radiculopathy, lumbar region; K21.9 Gastro-esophageal reflux disease without esophagitis; R73.03 Prediabetes; L03.113 Cellulitis of right upper limb; E87.5 Hyperkalemia
CPT/HCPCS: 36415; 80053; 80061; 83036; 83721; 84443; 87640

== ENCOUNTER 2023-04-28 09:22 | Outpatient (CLI) | payer MEDICARE, MEDICAID ==
[2023-04-28 12:52] LABS: BASOPHILS # (AUTO) 0.1 10^3/uL (0.0-0.1); BASOPHILS % (AUTO) 0.5 %; EOSINOPHILS # (AUTO) 0.1 10^3/uL (0.0-0.7); HCT - HEMATOCRIT 40.9 % (37.0-47.0); HGB - HEMOGLOBIN 12.7 g/dL (12.0-16.0); LYMPHOCYTES # (AUTO) 4.1 10^3/uL (1.5-3.5); LYMPHOCYTES % (AUTO) 38.6 %; MEAN CORPUSCULAR HEMOGLOBIN 30.6 pg (27.0-31.0); MEAN CORPUSCULAR HGB CONC 31.1 g/dL (32.0-36.0); MEAN CORPUSCULAR VOLUME 98.6 fL (81.0-99.0); MONOCYTES # (AUTO) 0.6 10^3/uL (0.0-1.0); MONOCYTES % (AUTO) 5.7 %; NEUTROPHILS # (AUTO) 5.7 10^3/uL (1.5-6.6); PLT - PLATELET COUNT 296 10^3/uL (130-450); RED BLOOD COUNT 4.15 10^6/uL (4.20-5.40); RED CELL DISTRIBUTION WIDTH 11.9 % (12.0-15.0); WHITE BLOOD COUNT 10.5 x10^3/uL (4.8-10.8)
== END 2023-04-28 09:23 | disposition home or self-care (01) ==
LOC: LAB.N 09:22
PROVIDERS: ATTEND Family Medicine
DX: I10 Essential (primary) hypertension (principal); M17.0 Bilateral primary osteoarthritis of knee; M47.26 Other spondylosis with radiculopathy, lumbar region; M48.061 Spinal stenosis, lumbar region without neurogenic claudication; K21.9 Gastro-esophageal reflux disease without esophagitis; E87.5 Hyperkalemia
CPT/HCPCS: 36415; 85025

== ENCOUNTER 2023-04-30 10:12 | Outpatient (CLI) | payer MEDICARE, MEDICAID ==
[2023-04-30 11:14] LABS: CREATININE 0.8 mg/dL (0.6-1.3)
[2023-04-30] MEDS ORDERED: iohexoL-300 100 ML VIAL IVP ONE (16:21)
--- NOTE | 2023-04-30 16:24 | CT Report ---
PROCEDURE: SOFT TISSUE NECK W INDICATIONS: NECK MASS CONTRAST: 100ml omni 300 TECHNIQUE: After the administration of intravenous contrast, 3.0 mm axial sections acquired from the sella to th e aortic arch. Additional oblique axial 3.0 mm sections acquired through the pharynx. 3 mm thick co sidney reformats were generated. For radiation dose reduction, the following was used: automated exp osure control, adjustment of mA and/or kV according to patient size. COMPARISON: None. FINDINGS: Image quality: Excellent. Lymph nodes: No enlarged lymph nodes seen throughout the neck. Vessels: Visualized vasculature appears patent. Neck spaces: The oropharynx, nasopharynx, and pharynx demonstrate no mucosal lesions. The vocal cor ds, false vocal cords, pyriform sinuses, epiglottis, vallecula, and tongue base all appear normal. Glands: The parotid and submandibular glands appear normal. The thyroid gland is heterogeneous with multiple nodules measuring 2.2 cm. At the level of the thyroid gland is a hyperdense mass measuring 2.7 x 1.8 cm. This is similar attenuation to the thyroid gland with heterogeneous appearance and poss ible nodules. There is no distinct thyroid isthmus. Miscellaneous: Visualized brain and orbits appear normal. Bilateral lens comparisons. Lung apices a ppear clear. Superficial soft tissues appear normal. Bones: No suspicious bony lesions. Visualized sinuses and mastoids appear unremarkable. Degenerati ve changes of the spine. IMPRESSION: At the level of the thyroid gland, there is a hyper attenuating mass measuring 2.7 x 1.8 cm which may represent ectopic thyroid tissue or malformed thyroid gland as no thyroid isthmus is seen. The thyro id gland is heterogeneous with multiple nodules measuring up to 2.2 cm. Recommend thyroid ultrasound for further evaluation. Reviewed by: Justo Krishnamurthy MD on 04/30/2023 4:23 PM PST Approved by: Justo Krishnamurthy MD on 04/30/2023 4:23 PM PST Station ID: [id number]
== END 2023-04-30 10:13 | disposition home or self-care (01) ==
LOC: DI 10:12
PROVIDERS: ATTEND Otolaryngology
DX: R22.1 Localized swelling, mass and lump, neck (principal); E89.0 Postprocedural hypothyroidism; R13.10 Dysphagia, unspecified; E04.2 Nontoxic multinodular goiter; E07.89 Other specified disorders of thyroid
CPT/HCPCS: 36415; 70491; 82565; Q9967

== ENCOUNTER 2023-08-31 09:56 | Outpatient (CLI) | payer MEDICARE, MEDICAID ==
[2023-08-31 12:20] LABS: ESTIMATED AVERAGE GLUCOSE 131 mg/dL (70-100); HEMOGLOBIN A1c% 6.2 % (4.27-6.07)
[2023-08-31 12:31] LABS: CALCIUM 9.7 mg/dL (8.5-10.3); CREATININE 0.8 mg/dL (0.6-1.3); POTASSIUM 3.5 mmol/L (3.5-4.5)
== END 2023-08-31 09:57 | disposition home or self-care (01) ==
LOC: LAB.N 09:56
PROVIDERS: ATTEND Family Medicine
DX: E11.9 Type 2 diabetes mellitus without complications (principal)
CPT/HCPCS: 36415; 80048; 83036

== ENCOUNTER 2023-10-07 11:18 | Outpatient (CLI) | payer MEDICARE, MEDICAID ==
--- NOTE | 2023-10-07 14:27 | XRAY Report ---
PROCEDURE: Foot 3+V LT (Weight Bearing) INDICATIONS: PLANTAR FASCITIS / SMALL MASS 1ST MPJ TECHNIQUE: 3 views of the foot were acquired. COMPARISON: None. FINDINGS: Bones: No acute fractures or dislocations. No suspicious bony lesions. Posterior and plantar calca rikki enthesophytes are present. Mild scattered degenerative changes at the interphalangeal joints of the toes. Soft tissues: No suspicious soft tissue calcifications. IMPRESSION: 1.No acute osseous abnormality. No bony mass is seen. MRI could be performed for further evaluation i f indicated clinically. 2.Calcaneal enthesopathy. Reviewed by: Bebeto Aburto MD on 10/07/2023 2:25 PM PDT Approved by: Bebeto Aburto MD on 10/07/2023 2:25 PM PDT Station ID: [id number]
== END 2023-10-07 11:19 | disposition home or self-care (01) ==
LOC: DI.N 11:18
PROVIDERS: ATTEND Podiatrist
DX: M19.072 Primary osteoarthritis, left ankle and foot (principal); M72.2 Plantar fascial fibromatosis; M77.52 Other enthesopathy of left foot and ankle

== ENCOUNTER 2023-10-10 10:55 | Emergency (ER) | payer MEDICARE, MEDICAID ==
--- NOTE | 2023-10-10 13:36 | ED Physician Documentation ---
History of Present Illness - Stated complaint Stated Complaint: LT LEG PX/CAN'T WALK - Chief complaint Chief Complaint: Ext Problem - History obtained from History obtained from: Patient - History of Present Illness Timing: Yesterday Pain level max: 8 Pain level now: 5 - Additonal information Additional information: Patient is an 82-year-old female who states that she started develop left leg pain yesterday. She states it feels like a cramping in her leg. Worse with movement, better with rest. She states that she took a dose of Celebrex without relief. No falls. No trauma. No recent surgeries. She states that she has mild swelling in both her legs. No recent travel. Not on anticoagulants. She states that last week she had cramping in her left foot. No numbness or tingling. No fevers. No chills. Review of Systems Constitutional: denies: Fever, Chills Cardiac: denies: Chest pain / pressure, Palpitations Respiratory: denies: Dyspnea, Cough GI: denies: Abdominal Pain, Vomiting, Diarrhea : denies: Dysuria, Incontinent Musculoskeletal: denies: Neck pain, Back pain Neurologic: denies: Headache PD PAST MEDICAL HISTORY - Past Medical History Cardiovascular: Hypertension, High cholesterol Respiratory: Asthma Endocrine/Autoimmune: None GI: GERD : None HEENT: None Psych: None Musculoskeletal: Osteoarthritis, Osteoporosis Derm: None - Past Surgical History Past Surgical History: Yes 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, EGD, 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 HEENT: Cataracts - Present Medications Home Medications: Ambulatory Orders Medication Instructions Recorded Confirmed Acetaminophen [Tylenol Extra 500 mg PO DAILY 02/15/13 10/10/23 Strength] Calcium Carbonate [Calcium] 600 mg PO DAILY 02/15/13 10/10/23 Losartan Potassium [Cozaar] 50 mg PO DAILY 02/15/13 10/10/23 Pravastatin Sodium 20 mg PO DAILY 02/15/13 10/10/23 Albuterol 2.5 mg INH Q4H PRN #30 neb 06/19/15 10/10/23 raNITIdine [Zantac] 75 mg PO DAILY 12/12/15 10/10/23 Fluticasone 44 Mcg [Flovent] 1 puffs INH BID 05/08/17 10/10/23 Meloxicam [Mobic] 7.5 mg PO BID PRN #20 tablet 08/01/17 10/10/23 Cyclobenzaprine [Flexeril] 10 mg PO TID PRN #20 tablet 02/14/18 10/10/23 Lidocaine Patch 5% [Lidoderm Patch] 1 each TOP DAILY PRN #10 patch 02/14/18 10/10/23 Ciprofloxacin HCl [Cipro] 500 mg PO BID #14 tablet 09/11/18 10/10/23 cephALEXin [Keflex] 500 mg PO Q6H #28 cap 01/13/23 10/10/23 dilTIAZem HCL [Diltiazem 24Hr ER] 120 mg PO DAILY 01/13/23 10/10/23 predniSONE [Deltasone] 1 tablet PO 0800 01/13/23 10/10/23 Doxycycline Hyclate 100 mg PO BID 7 Days #14 cap 01/15/23 10/10/23 oxyCODONE [Roxicodone] 2.5 - 5 mg PO Q6H PRN #10 tablet 10/10/23 MDD 6 - Allergies Allergies/Adverse Reactions: Allergies Allergy/AdvReac Type Severity Reaction Status Date / Time calcium [Calcium] Allergy Unknown Edema Verified 10/10/23 11:22 Penicillins Allergy Unknown Respiratory Verified 10/10/23 11:22 lisinopril AdvReac Unknown Respiratory Verified 10/10/23 11:22 amenophyllina Allergy Unknown Uncoded 10/10/23 11:22 - Social History Does the pt smoke?: No Smoking Status: Never smoker Does the pt drink ETOH?: No Does the pt have substance abuse?: No - Immunizations Immunizations are current?: No Immunizations: TDAP >10years/unknown - POLST Patient has POLST: No PD ED PE NORMAL - Vitals Vital signs reviewed: Yes - General General: Alert and oriented X 3, No acute distress - HEENT HEENT: Moist mucous membranes - Neck Neck: Supple, no meningeal sign - Cardiac Cardiac: RRR, Strong equal pulses - Respiratory Respiratory: No respiratory distress, Clear bilaterally - Abdomen Abdomen: Soft, Non tender, Non distended - Back Back: No spinal TTP (No midline tenderness to palpation or percussion. No step- off or deformity.) - Derm Derm: Warm and dry - Extremities Extremities: Other - Neuro Neuro: Alert and oriented X 3 - Psych Psych: Normal mood, Normal affect - Free text exam Free text exam: LLE - No pain with range of motion of the hip, most of the pain appears to be with range of motion of the knee. No significant swelling. No joint effusion. No calf swelling or tenderness. Neurovascular intact. Does have some tenderness on the posterior thigh. ACL, MCL, PCL, LCL are intact. Results - Vitals Vitals: Vital Signs - 24 hr 10/10/23 10/10/23 10/10/23 11:20 14:54 15:51 Temperature 36.7 C 36.8 C Heart Rate 66 62 68 Respiratory 16 16 20 Rate Blood Pressure 150/56 H 148/60 H 149/88 H O2 Saturation 99 99 100 Oxygen O2 Source Room air - Labs Labs: Laboratory Tests 10/10/23 10/10/23 13:35 13:35 WBC 7.5 RBC 4.15 L Hgb 12.5 Hct 40.7 MCV 98.1 MCH 30.1 MCHC 30.7 L RDW 12.3 Plt Count 248 MPV 8.9 Neut # (Auto) 4.3 Lymph # (Auto) 2.4 Sharkey # (Auto) 0.6 Eos # (Auto) 0.1 Baso # (Auto) 0.0 Absolute Nucleated RBC 0.00 Nucleated RBC % 0.0 Sodium 142 Potassium 4.3 Chloride 106 Carbon Dioxide 30 Anion Gap 6.0 BUN 14 Creatinine 0.8 Estimated GFR (MDRD) 68 L Glucose 122 H Calcium 9.6 Phosphorus 3.7 Magnesium 2.1 Total Bilirubin 0.5 AST 16 ALT 17 Alkaline Phosphatase 64 Total Protein 7.5 Albumin 4.3 Globulin 3.2 Albumin/Globulin Ratio 1.3 - Rads (name of study) duplex US LLE Relevant Findings:: Final report received, See rad report L knee xray Relevant Findings:: Final report received, See rad report PD Medical Decision Making - ED course Complexity details: reviewed results, re-evaluated patient, considered differential, d/w patient ED course: No acute findings on duplex ultrasound left lower extremity. Left knee x-ray shows arthritis but no joint effusion or other acute injury. Pain greatly improved with a dose of oxycodone here. She is able to ambulate in the emergency department. Has pain mainly with range of motion of the left knee. Will prescribe pain medication for home and see how she progresses over the next few days. No signs of infection. No evidence of hip fracture or ankle fracture. Ambulating well after pain medication. Patient counseled regarding signs and symptoms for which I believe and urgent re-evaluation would be necessary. Patient with good understanding of and agreement to plan and is comfortable going home at this time This document was made in part using voice recognition software. While efforts are made to proofread this document, sound alike and grammatical errors may occur. Departure - Departure Disposition: 01 Home, Self Care Clinical Impression: Arthritis of knee Condition: Good Instructions: ED Degenerative Joint Disease Follow-Up: Ez Hale MD [Primary Care Provider] - Within 1 week Prescriptions: oxyCODONE [Roxicodone] 2.5 - 5 mg PO Q6H PRN #10 tablet MDD 6 PRN Reason: pain Comments: Your ultrasound does not show evidence of blood clot in the leg. Your x-ray of your knee appears to show significant arthritis. Please follow-up with your doctor for further care of this. Please return if you worsen. Please continue your current medications at home. We have sent a prescription for pain medicine to [facility] in [place]. I am prescribing a short course of narcotic pain medication for you. These are potentially dangerous and addictive medications that should be used carefully. These medications may constipate you. Take an dwuz-nvb-nndiffx stool softener (docusate) twice daily with plenty of water while taking these medications. If you go 24 hours without a bowel movement, take [id number]-wrt-[id number] miralax, per package instructions. Do not drink or drive while taking these medications. If you received narcotic or sedating medications while in the emergency department, do not drive for 24 hours. Store this medication in a safe, secure place and out of reach of children. It is a violation of federal law to give or sell this medication to another person or to use in a manner other than prescribed. The ED will not refill narcotic prescriptions, including prescriptions lost or stolen. To dispose of unwanted medications: 1. [facility] at [address] in [place] has a medication drop box. They accept prescription medications (in pill form) Wednesday through Wednesday 9:00 a.m. to 5:00 p.m. 2. The [facility] accepts prescription medications (in pill form only) for disposal year round. Call for more information. 3. Contact the [facility] for the next [facility] sponsored prescription drug collection event. , [phone], or [phone]; Forms: PCP List Discharge Date/Time: 10/10/23 15:52
[2023-10-10 13:38] LABS: BASOPHILS % (AUTO) 0.5 %; EOSINOPHILS # (AUTO) 0.1 10^3/uL (0.0-0.7); EOSINOPHILS % (AUTO) 1.5 %; HCT - HEMATOCRIT 40.7 % (37.0-47.0); HGB - HEMOGLOBIN 12.5 g/dL (12.0-16.0); LYMPHOCYTES # (AUTO) 2.4 10^3/uL (1.5-3.5); LYMPHOCYTES % (AUTO) 31.9 %; MEAN CORPUSCULAR HEMOGLOBIN 30.1 pg (27.0-31.0); MEAN CORPUSCULAR HGB CONC 30.7 g/dL (32.0-36.0); MEAN CORPUSCULAR VOLUME 98.1 fL (81.0-99.0); MEAN PLATELET VOLUME 8.9 fL (7.9-10.8); MONOCYTES # (AUTO) 0.6 10^3/uL (0.0-1.0); MONOCYTES % (AUTO) 8.3 %; NEUTROPHILS # (AUTO) 4.3 10^3/uL (1.5-6.6); NEUTROPHILS % (AUTO) 57.5 %; PLT - PLATELET COUNT 248 10^3/uL (130-450); RED BLOOD COUNT 4.15 10^6/uL (4.20-5.40); RED CELL DISTRIBUTION WIDTH 12.3 % (12.0-15.0); WHITE BLOOD COUNT 7.5 x10^3/uL (4.8-10.8)
[2023-10-10 13:51] LABS: ALBUMIN 4.3 g/dL (3.2-5.5); ALBUMIN/GLOBULIN RATIO 1.3 (1.0-2.2); BILIRUBIN,TOTAL 0.5 mg/dL (0.2-1.0); CALCIUM 9.6 mg/dL (8.5-10.3); CREATININE 0.8 mg/dL (0.6-1.3); MAGNESIUM 2.1 mg/dL (1.7-2.3); PHOSPHORUS 3.7 mg/dL (2.5-5.0); POTASSIUM 4.3 mmol/L (3.5-4.5); TOTAL PROTEIN 7.5 g/dL (6.4-8.9)
[2023-10-10] MEDS: oxyCODONE 5 MG TABLET PO STA (14:23)
--- NOTE | 2023-10-10 14:44 | Ultrasound Report ---
PROCEDURE: Duplex Ext Veins Left INDICATIONS: L Leg pain, swelling TECHNIQUE: Real-time imaging, as well as color and pulse Doppler interrogation, were performed of th e lower extremity deep veins from the inguinal ligament to the popliteal fossa. Attempted visualizati on of the calf veins was performed. COMPARISON: 03/25/2022, 03/22/2020 FINDINGS: The deep veins are normally compressible, and free of intraluminal thrombus. Color and pu lse Doppler demonstrate normal phasic intraluminal flow. There is normal augmentation response to di stal compression maneuver. IMPRESSION: No deep venous thrombosis of the visualized lower extremity. Reviewed by: Dontrell Hoang MD on 10/10/2023 1:43 PM CATHI Approved by: Dontrell Hoang MD on 10/10/2023 1:43 PM CATHI Station ID: [id number]
--- NOTE | 2023-10-10 15:06 | XRAY Report ---
PROCEDURE: Knee 4+V LT INDICATIONS: knee pain TECHNIQUE: 3 views of the knee was obtained. COMPARISON: None FINDINGS: Bones: No fractures or dislocations. No suspicious bony lesions. Moderate medial compartmental and patellofemoral joint space narrowing and marginal osteophytes. Soft tissues: Small knee joint effusion. No suspicious soft tissue calcifications or masses. IMPRESSION: Moderate osteoarthritis. No fracture. Reviewed by: Dontrell Hoang MD on 10/10/2023 2:05 PM AKANTONI Approved by: Dontrell Hoang MD on 10/10/2023 2:05 PM AKDT Station ID: [id number]
[2023-10-10 15:56] VITALS: BP 149/88; O2SAT 100
== END 2023-10-10 15:52 | disposition home or self-care (01) ==
LOC: ED 10:55
DX: M17.9 Osteoarthritis of knee, unspecified (principal); I10 Essential (primary) hypertension; E78.00 Pure hypercholesterolemia, unspecified; K21.9 Gastro-esophageal reflux disease without esophagitis; Z79.899 Other long term (current) drug therapy
CPT/HCPCS: 36415; 73564; 80053; 83735; 84100; 85025; 93971; 99283; 99284; A9270

== ENCOUNTER 2023-10-29 15:35 | Outpatient (CLI) | payer MEDICARE, MEDICAID ==
[~2023-10-29 15:35] MED LIST: GADOTERATE MEGLUMINE 7.5 MMOL/15 ML VIAL ONE
[2023-10-29] MEDS: GADOTERATE MEGLUMINE 7.5 MMOL/15 ML VIAL IVP ONE (17:17)
--- NOTE | 2023-11-01 08:34 | MRI Report ---
PROCEDURE: Foot LT W/WO INDICATIONS: PAINFUL MASS CONTRAST: 11.4 TECHNIQUE: Noncontrast sagittal T1 spin echo and T2 fast spin echo with fat saturation, long-axis T1 spin echo a nd T2 fast spin echo with fat saturation; short-axis T1 spin echo, proton density fast spin echo, and T2 fast spin echo with fat saturation through the forefoot. Post-contrast short axis, long axis, an d sagittal T1 spin echo with fat saturation through the forefoot. COMPARISON: Left foot radiograph dated 10/07/2023. FINDINGS: Image quality: Excellent. Bones and joints: Mild to moderate midfoot and forefoot joint osteoarthritic changes are seen more no tably involving navicular cuneiform joints and articulation between first metatarsal head and sesamoi ds. Mild edema is seen in the medial and lateral sesamoid bones without discrete fracture line. No ot her area of abnormal marrow signal. No metatarsal stress fractures. No area of abnormal intraosseous enhancement. Soft tissues: There is a 6 x 5 x 8 mm oval cystic structure within plantar foot muscles over plantar and lateral aspect of flexor hallucis longus tendon at the level of first TMT joint. No contrast enha ncement is noted within this area. The extensor and flexor tendons are grossly intact. No plantar reynold t muscle signal abnormalities or abnormal enhancement. Visualized portion of plantar fascia is within normal limits. Lisfranc ligament is thickened is suggestive of low-grade sprain. Susceptibility margarita facts involving plantar aspect of first distal phalangeal shaft and is of indeterminate etiology sugg est clinical correlation. No abnormal enhancement is noted in this area. IMPRESSION: 1. Finding is suggestive of a 6 x 5 x 8 mm ganglion cyst within plantar foot muscles over plantar and lateral aspect of the flexor hallucis longus tendon at the level of first TMT joint. No enhancing so ft tissue mass is seen. No other cystic changes are noted. 2. Osteoarthritic changes throughout midfoot and forefoot. Mild edema involving medial and lateral se samoid bones of first MCP joint concerning for low-grade sesamoiditis. No fracture or dislocation. No abnormal intraosseous enhancement. 3. Extensor and flexor tendons are grossly intact. Thickened Lisfranc ligament suggestive of low-grad e ligament sprain. Reviewed by: Sabino Santiago MD on 11/01/2023 8:33 AM PDT Approved by: Sabino Santiago MD on 11/01/2023 8:33 AM PDT Station ID: [id number]
== END 2023-10-29 15:36 | disposition home or self-care (01) ==
LOC: DI 15:35
PROVIDERS: ATTEND Podiatrist
DX: M19.072 Primary osteoarthritis, left ankle and foot (principal); R93.7 Abnormal findings on diagnostic imaging of other parts of musculoskeletal system; M67.472 Ganglion, left ankle and foot; R93.6 Abnormal findings on diagnostic imaging of limbs

== ENCOUNTER 2023-12-17 12:08 | Outpatient (CLI) | payer MEDICARE, MEDICAID ==
--- NOTE | 2023-12-17 14:07 | XRAY Report ---
PROCEDURE: Chest 2V INDICATIONS: CONTUSION OF RIGHT FRONT WALL OF THORAX TECHNIQUE: 2 views of the chest were acquired. COMPARISON: Chest radiograph 08/05/2017. FINDINGS: Surgical changes and devices: None. Lungs and pleura: No pleural effusions or pneumothorax. Lungs are clear. Mediastinum: Mediastinal contours appear normal. Heart size is normal. Bones and chest wall: No suspicious bony lesions. Overlying soft tissues appear unremarkable. IMPRESSION: No acute cardiopulmonary process. Reviewed by: Bebeto Aburto MD on 12/17/2023 2:06 PM PDT Approved by: Bebeto Aburto MD on 12/17/2023 2:06 PM PDT Station ID: [id number]
--- NOTE | 2023-12-17 14:09 | XRAY Report ---
PROCEDURE: Shoulder 2+V LT INDICATIONS: CONTUSION OF LEFT SHOULDER TECHNIQUE: 3 views of the shoulder were acquired. COMPARISON: None. FINDINGS: Bones: No acute fractures or dislocations. No suspicious bony lesions. Visualized ribs appear inta ct. Generalized osteopenia. Mild to moderate acromioclavicular joint osteoarthrosis. Soft tissues: Calcifications posterior humeral head is suspicious for calcific tendinopathy. The vis ualized lungs are within normal limits. IMPRESSION: 1.No acute osseous abnormality. If there is clinical concern or persistent symptoms, additional imagi ng such as repeat radiographs or advanced imaging (e.g. CT, MRI) may be helpful for further evaluatio n. 2.Suspected rotator cuff calcific tendinopathy. 3.Mild to moderate acromioclavicular joint degenerative Reviewed by: Bebeto Aburto MD on 12/17/2023 2:08 PM PDT Approved by: Bebeto Aburto MD on 12/17/2023 2:08 PM PDT Station ID: [id number]
--- NOTE | 2023-12-17 14:12 | XRAY Report ---
PROCEDURE: Hand 3+V LT INDICATIONS: LEFT HAND PAIN TECHNIQUE: 3 views of the hand acquired. COMPARISON: None. FINDINGS: Bones: Minimally displaced oblique fracture of the 4th metacarpal shaft. Background degenerative sadie nges are seen in the wrist and fingers. Soft tissues: Nonspecific soft tissue edema is present. IMPRESSION: Minimally displaced oblique fracture of the 4th metacarpal shaft. Reviewed by: Bebeto Aburto MD on 12/17/2023 2:11 PM PDT Approved by: Bebeto Aburto MD on 12/17/2023 2:11 PM PDT Station ID: [id number]
== END 2023-12-17 12:09 | disposition home or self-care (01) ==
LOC: DI 12:08
PROVIDERS: ATTEND Physician Assistant
DX: S20.211A Contusion of right front wall of thorax, initial encounter (principal); M19.012 Primary osteoarthritis, left shoulder; S62.325A Displaced fracture of shaft of fourth metacarpal bone, left hand, initial encounter for closed fracture

== ENCOUNTER 2023-12-23 13:24 | Outpatient (CLI) | payer MEDICARE, MEDICAID ==
[2023-12-23 13:44] LABS: BASOPHILS # (AUTO) 0.1 10^3/uL (0.0-0.1); BASOPHILS % (AUTO) 0.6 %; EOSINOPHILS % (AUTO) 0.4 %; HCT - HEMATOCRIT 40.2 % (37.0-47.0); HGB - HEMOGLOBIN 12.8 g/dL (12.0-16.0); LYMPHOCYTES # (AUTO) 2.6 10^3/uL (1.5-3.5); MEAN CORPUSCULAR HEMOGLOBIN 30.5 pg (27.0-31.0); MEAN CORPUSCULAR HGB CONC 31.8 g/dL (32.0-36.0); MEAN CORPUSCULAR VOLUME 95.7 fL (81.0-99.0); MEAN PLATELET VOLUME 8.9 fL (7.9-10.8); MONOCYTES # (AUTO) 0.5 10^3/uL (0.0-1.0); MONOCYTES % (AUTO) 6.3 %; NEUTROPHILS % (AUTO) 60.5 %; PLT - PLATELET COUNT 280 10^3/uL (130-450); RED CELL DISTRIBUTION WIDTH 12.5 % (12.0-15.0); WHITE BLOOD COUNT 8.2 x10^3/uL (4.8-10.8)
[2023-12-23 14:04] LABS: ALBUMIN 4.7 g/dL (3.2-5.5); ALBUMIN/GLOBULIN RATIO 1.5 (1.0-2.2); ALKALINE PHOSPHATASE 60 IU/L (42-121); ALT ALANINE AMINOTRANSFERASE 14 IU/L (10-60); AST ASPARTATE AMINOTRANSFERASE 16 IU/L (10-42); BILIRUBIN,TOTAL 0.7 mg/dL (0.2-1.0); BUN - BLOOD UREA NITROGEN 21 mg/dL (6-20); CALCIUM 9.8 mg/dL (8.5-10.3); CARBON DIOXIDE - CO2 29 mmol/L (21-32); CHLORIDE 104 mmol/L (101-111); CHOL/HDL RATIO 2.1 (<4.4); CHOLESTEROL 173 mg/dL; CREATININE 0.8 mg/dL (0.6-1.3); GFR - MDRD 68 (>89); GLUCOSE 99 mg/dL (74-104); HDL CHOLESTEROL 81 mg/dL; LDL CHOLESTEROL,CALCULATED 72 mg/dL; LDL/HDL RATIO 0.9 (<4.4); POTASSIUM 3.7 mmol/L (3.5-4.5); SODIUM 139 mmol/L (135-145); TOTAL PROTEIN 7.8 g/dL (6.4-8.9); TRIGLYCERIDES 100 mg/dL; VLDL CHOLESTEROL 20 mg/dL
[2023-12-23 14:19] LABS: THYROID STIMULATING HORMONE 0.67 uIU/mL (0.34-5.60)
--- NOTE | 2023-12-23 21:36 | XRAY Report ---
PROCEDURE: Cervical Spine 2-3V INDICATIONS: NECK INJURY TECHNIQUE: 3 views of the cervical spine were obtained. COMPARISON: None FINDINGS: Bones: Vertebral body height and alignment is maintained. No evidence of traumatic malalignment. Dege nerative pannus changes noted at the base of odontoid. Cranial vertebral relationships normal. Soft tissues: No prevertebral soft tissue swelling. IMPRESSION: Degenerative changes at. No fracture or malalignment. Reviewed by: Dontrell Hoang MD on 12/23/2023 8:35 PM AKANTONI Approved by: Dontrell Hoang MD on 12/23/2023 8:35 PM AKDT Station ID: [id number]
[2023-12-23 22:30] LABS: ESTIMATED AVERAGE GLUCOSE 134 mg/dL (70-100); HEMOGLOBIN A1c% 6.3 % (4.27-6.07)
== END 2023-12-23 13:25 | disposition home or self-care (01) ==
LOC: LAB 13:24
PROVIDERS: ATTEND Family Medicine
DX: I10 Essential (primary) hypertension (principal); K21.9 Gastro-esophageal reflux disease without esophagitis; E11.9 Type 2 diabetes mellitus without complications; M17.0 Bilateral primary osteoarthritis of knee; E87.5 Hyperkalemia; E78.5 Hyperlipidemia, unspecified; S19.9XXA Unspecified injury of neck, initial encounter; R93.7 Abnormal findings on diagnostic imaging of other parts of musculoskeletal system
CPT/HCPCS: 36415; 80053; 80061; 83036; 83721; 84443; 85025

== ENCOUNTER 2024-01-17 14:37 | Outpatient (CLI) | payer MEDICARE, MEDICAID ==
--- NOTE | 2024-01-19 13:23 | XRAY Report ---
PROCEDURE: Hand 3+V LT INDICATIONS: DISPLACED FX OF SHAFT OF 4TH METACARPAL BONE TECHNIQUE: 3 views of the hand(s) acquired. COMPARISON: Prior hand series dated December 17, 2023. FINDINGS: Bones: No significant change in mildly displaced oblique fracture extending through the mid shaft of the fourth metacarpus. Fracture lucency is still visible and no callus. Background osteoarthritic ch anges. Soft tissues: No suspicious soft tissue calcifications or masses. IMPRESSION: No significant change in mildly displaced oblique fracture involving the fourth metacarpus. No callus . Reviewed by: CRIS Amaral on 01/19/2024 1:22 PM PDT Approved by: Sulema Jackson MD on 01/19/2024 1:22 PM PDT Station ID: [id number]
== END 2024-01-17 14:38 | disposition home or self-care (01) ==
LOC: DI 14:37
PROVIDERS: ATTEND Physician Assistant Surgical
DX: S62.325A Displaced fracture of shaft of fourth metacarpal bone, left hand, initial encounter for closed fracture (principal)

== ENCOUNTER 2024-01-25 09:14 | Outpatient (CLI) | payer MEDICARE, MEDICAID ==
[2024-01-25 12:30] LABS: BASOPHILS # (AUTO) 0.1 10^3/uL (0.0-0.1); BASOPHILS % (AUTO) 0.9 %; EOSINOPHILS # (AUTO) 0.1 10^3/uL (0.0-0.7); EOSINOPHILS % (AUTO) 1.3 %; HGB - HEMOGLOBIN 12.2 g/dL (12.0-16.0); LYMPHOCYTES # (AUTO) 2.1 10^3/uL (1.5-3.5); LYMPHOCYTES % (AUTO) 31.3 %; MEAN CORPUSCULAR HEMOGLOBIN 30.7 pg (27.0-31.0); MEAN CORPUSCULAR HGB CONC 32.1 g/dL (32.0-36.0); MEAN CORPUSCULAR VOLUME 95.7 fL (81.0-99.0); MEAN PLATELET VOLUME 9.5 fL (7.9-10.8); MONOCYTES # (AUTO) 0.6 10^3/uL (0.0-1.0); MONOCYTES % (AUTO) 8.6 %; NEUTROPHILS # (AUTO) 3.9 10^3/uL (1.5-6.6); NEUTROPHILS % (AUTO) 57.6 %; PLT - PLATELET COUNT 255 10^3/uL (130-450); RED BLOOD COUNT 3.97 10^6/uL (4.20-5.40); RED CELL DISTRIBUTION WIDTH 12.5 % (12.0-15.0); WHITE BLOOD COUNT 6.7 x10^3/uL (4.8-10.8)
[2024-01-25 12:37] LABS: ALBUMIN 3.9 g/dL (3.2-5.5); ALBUMIN/GLOBULIN RATIO 1.3 (1.0-2.2); ALKALINE PHOSPHATASE 58 IU/L (42-121); ALT ALANINE AMINOTRANSFERASE 16 IU/L (10-60); AST ASPARTATE AMINOTRANSFERASE 16 IU/L (10-42); BILIRUBIN,TOTAL 0.5 mg/dL (0.2-1.0); BUN - BLOOD UREA NITROGEN 18 mg/dL (6-20); CALCIUM 8.9 mg/dL (8.5-10.3); CARBON DIOXIDE - CO2 28 mmol/L (21-32); CHLORIDE 106 mmol/L (101-111); CHOL/HDL RATIO 1.9 (<4.4); CHOLESTEROL 149 mg/dL; CREATININE 0.7 mg/dL (0.6-1.3); GFR - MDRD 80 (>89); GLUCOSE 95 mg/dL (74-104); HDL CHOLESTEROL 79 mg/dL; LDL CHOLESTEROL,CALCULATED 51 mg/dL; LDL/HDL RATIO 0.6 (<4.4); POTASSIUM 3.1 mmol/L (3.5-4.5); SODIUM 140 mmol/L (135-145); TOTAL PROTEIN 6.9 g/dL (6.4-8.9); TRIGLYCERIDES 97 mg/dL; VLDL CHOLESTEROL 19 mg/dL
[2024-01-25 12:41] LABS: THYROID STIMULATING HORMONE 1.28 uIU/mL (0.34-5.60)
[2024-01-25 13:02] LABS: ESTIMATED AVERAGE GLUCOSE 134 mg/dL (70-100); HEMOGLOBIN A1c% 6.3 % (4.27-6.07)
== END 2024-01-25 09:15 | disposition home or self-care (01) ==
LOC: LAB.N 09:14
PROVIDERS: ATTEND Family Medicine
DX: I10 Essential (primary) hypertension (principal); K21.9 Gastro-esophageal reflux disease without esophagitis; E11.9 Type 2 diabetes mellitus without complications; M17.0 Bilateral primary osteoarthritis of knee; E87.5 Hyperkalemia; E78.5 Hyperlipidemia, unspecified
CPT/HCPCS: 36415; 80053; 80061; 83036; 83721; 84443; 85025